=== PATIENT | male | born 1935 | race Caucasian/White ===

== ENCOUNTER 2016-09-18 09:50 | Inpatient (IN) | payer OTHER ==
[2016-09-18 10:00] VITALS: BMI 27.3
--- NOTE | 2016-09-18 10:34 | PDOC ---
History of Present Illness - General Chief Complaint: Shortness of Breath Stated Complaint: SOB Time Seen by Provider: 09/18/16 10:18 History Source: Patient Exam Limitations: No Limitations - History of Present Illness Initial Comments: 81 yo M with afib on eliquis 2.5mg and coreg, CAD, lower GIB 2/2 sigmoid colon prolapse, dystolic CHF with pleural effusion s/p thoracentesis in 2015, HTN, DM2 , Hyperlipdemia, Pulmonary Hypertension, Peptic Ulcer Disease, Other (colon polyps), BPH, chronic low back pain, Gout, presented to the ED with worsening sob x 1 week. Patient is short of breath on 2.5L oxygen at home and he usually uses it at night for just 1-2 hours. But in the past week he has been experiencing increasing exercise intolerance in that he would get short of breath from living room to kitchen while he usually can walk 1-2 blocks. He uses 1 pillow at night and doesn't wake up gasping for air. 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 Denies fever, chills, chest pain, abd pain, urinary or bowel symptom. Past History - Past Medical History Allergies/Adverse Reactions: Allergies Allergy/AdvReac Type Severity Reaction Status Date / Time No Known Allergies Allergy Verified 09/18/16 09:54 Home Medications: Ambulatory Orders Aspirin [ASA -] 81 mg PO DAILY 08/22/14 Simvastatin [Zocor -] 20 mg PO HS 08/22/14 Gabapentin [Neurontin -] 100 mg PO HS 03/26/15 Potassium Chloride [Klor-Con 10] 10 meq PO DAILY 03/26/15 Carvedilol [Coreg -] 3.125 mg PO BID 10/03/15 Tamsulosin HCl [Flomax -] 0.4 mg PO DAILY 10/03/15 Apixaban [Eliquis] 2.5 mg PO BID #0 10/05/15 Colchicine [Colcrys] 0.6 mg PO DAILY PRN #0 10/05/15 Furosemide [Lasix] 40 mg PO DAILY 09/18/16 Cardiac Disorders: Yes (afib) Diabetes: Yes GI Disorders: Yes (gerd, constipation) HTN: Yes Hypercholesterolemia: Yes Suicide Attempt (Hx): No - Surgical History Cardiac Surgery: Yes (2 stents) Orthopedic Surgery: Yes (carpal tunnel surgery B/L) - Psycho/Social/Smoking Cessation Hx Anxiety: No Suicidal Ideation: No Smoking History: Former smoker Have you smoked in the past 12 months: No Number of Cigarettes Smoked Daily: 0 If you are a former smoker, when did you quit?: 1979 Information on smoking cessation initiated: No Hx Alcohol Use: No Drug/Substance Use Hx: No Substance Use Type: None Hx Substance Use Treatment: No *Physical Exam - Vital Signs Last Vital Signs Temp Pulse Resp BP Pulse Ox 97.5 F L 67 18 115/57 99 09/18/16 09:55 09/18/16 11:50 09/18/16 11:50 09/18/16 11:50 09/18/16 11:50 ED Treatment Course - LABORATORY CBC & Chemistry Diagram: 09/18/16 10:59 09/18/16 10:59 - ADDITIONAL ORDERS Additional order review: Laboratory Results 09/18/16 09/18/16 09/18/16 10:59 10:59 10:59 INR 1.95 H D Sodium 137 Potassium 4.6 D Chloride 101 Carbon Dioxide 25 Anion Gap 11 BUN 35 H D Creatinine 1.8 H D Creat Clearance w eGFR 36.21 Random Glucose 108 H Calcium 8.8 Magnesium 2.3 D Total Bilirubin 2.9 H AST 54 H D ALT 29 Alkaline Phosphatase 138 H Creatine Kinase 177 D Creatine Kinase Index 1.2 CK-MB (CK-2) 1.947 CK-MB (CK-2) Rel Index Cancelled Troponin I 0.04 B-Natriuretic Peptide 2086.58 H Total Protein 7.2 Albumin 3.3 L 09/18/16 10:59 RBC 3.38 L MCV 85.0 MCHC 31.7 L RDW 19.6 H MPV 8.0 Neutrophils % 76.8 Lymphocytes % 11.6 D Monocytes % 9.1 Eosinophils % 1.8 Basophils % 0.7 Medical Decision Making - Medical Decision Making 09/18/16 11:02 81 yo M p/w worsening sob x 1 week in the ED. Like acute on chronic CHF exacerbation. Will obtain CXR and labs. 09/18/16 12:10 Patient has elevated BNP ~2000 and positive CXR shows pleural effusion with questionable infiltrates. Case discussed with Dr. Chelsy Sarmiento and will admit the patient under his service to telemetry. *DC/Admit/Observation/Transfer Diagnosis at time of Disposition: CHF (congestive heart failure) Qualifiers: Congestive heart failure type: combined Congestive heart failure chronicity: acute on chronic Qualified Code(s): I50.43 - Acute on chronic combined systolic (congestive) and diastolic (congestive) heart failure - Discharge Dispostion Condition at time of disposition: Stable Admit: Yes Decision to Admit order Date/Time: Decision to Admit Order Category Date Time Status Decision to Admit to Hospital Routine Admission 09/18/16 12:31 Active - Referrals Referrals: Gila Harris MD [Primary Care Provider] -
[2016-09-18 11:10] LABS: BASOPHIL 0.7 % (0-2.0); EOSINOPHIL 1.8 % (0-4.5); MCHC 31.7 g/dl (32.0-35.9); NEUTROPHILS 76.8 % (42.8-82.8); PLATELET COUNT 148 K/MM3 (134-434); RDW 19.6 % (11.9-15.9); WHITE BLOOD COUNT 6.4 K/mm3 (4.0-10.0)
[2016-09-18 11:25] LABS: INR 1.95 (0.82-1.09); PROTHROMBIN TIME (PATIENT) 21.8 SEC (9.98-11.88)
[2016-09-18 11:34] LABS: ALBUMIN 3.3 g/dl (3.4-5.0); BILIRUBIN,TOTAL 2.9 mg/dL (0.2-1.0); CALCIUM 8.8 mg/dL (8.5-10.1); COCKROFT - GAULT 34.91; CREATININE 1.8 mg/dL (0.7-1.3); TOT PROT 7.2 g/dl (6.4-8.2)
[2016-09-18 11:36] LABS: TROPONIN I 0.04 ng/ml (0.00-0.05)
--- NOTE | 2016-09-18 11:40 | PDOC ---
Attending Attestation - Resident Resident Name: Bernardino Huizar - ED Attending Attestation I have performed the following: I have examined & evaluated the patient, The case was reviewed & discussed with the resident, I agree w/resident's findings & plan, Exceptions are as noted - HPI HPI: 81 yo M h/o diastolic HF, CAD, HTN, Afib, CKD presenting to the ER with incr sob , orthopnea, leg swelling. Pt decreased diuretic himself No chest pain, heaviness, tightness no sore throat, cough, fever/chills - Physicial Exam PE: 09/19/16 09:00 Decreased breath sounds at the bases Mild pedal edema No wheezing No abd tenderness - Medical Decision Making CHF Labs sent Will admit Will diurese Heart Score/ECG Review - History History: Moderately suspicious - Electrocardiogram EKG: Normal - Age Age: >/= 65 - Risk Factors Risk Factors Heart Score: Yes Hx Hypercholesterolemia, Yes Hx Hypertension, Yes Hx Diabetes Based on the list above the patient has:: >/=3 risk factors or Hx atherosclerotic disease - Troponin Troponin: </= normal limit - Score Heart Score - Total: 5 #1 ECG reviewed & interpreted by me at: 11:41 09/18/16 11:41 Afib rate of 74 bpm, right axis deviation No st elevations or depressions T waves upright
[2016-09-18 11:54] LABS: MAGNESIUM 2.3 mg/dL (1.8-2.4)
[2016-09-18] MEDS ORDERED: COLCHICINE 0.6 MG TABLET (FP) PO PRN (17:06)
--- NOTE | 2016-09-18 17:38 | CON.CARD ---
Consult Consult Specialty:: cardio Referred by:: alfred (for daren) Reason for Consultation:: chf - History of Present Illness Chief Complaint: sob History of Present Illness: 81 yo male followed by dr wilson for HFpEF, here for sob x several days. saw steve approx 6 wks ago 08/03, with incr sob, orthopnea, leg swelling. wt up 3-5 lbs from baseline office wt 180 to 185 then. torsemide 20 qd incr'd to 40 qd then. f/u 2 wks later: wt down, sx's and edema improved. told to cont torsemide 40 and return 2 wks for o.v. and labs--he did not come. says was on 40qd since and doing well. then dry mouth, like cardboard and so on his own he cut back lasix to 20 qd about 1 week ago. his wt had gone down to 173 at home, came up to 176 after this dose reduction shortly thereafter he began to notice orthopnea and incr [id number]. only mild feet swelling. never cp/tightness/heaviness no sore throat, cough, fever/chills raspy voice change 07/06--saw ENT but exam was normal PMH: diast chf CAD HTN CKD afib - Past Medical History Cardio/Vascular: Yes: AFIB (on AC), CAD, CHF, HTN, Hyperlipdemia, Pulmonary Hypertension, Other (tricuspid regurgitation and aortic sclerosis, coronary stenting > 10 years ago). No: Aneurysm, Aortic Insufficiency, Aortic Stenosis Pulmonary: Yes: Other (left pleural effusion requiring thoracentesis 04/03) Gastrointestinal: Yes: Constipation, Peptic Ulcer Disease, Other (colon polyps) Renal/: Yes: Renal Inusuff (new finding today), BPH Musculoskeletal: Yes: Chronic low back pain Rheumatology: Yes: Gout ENT: Yes: Allergic Rhinitis Endocrine: Yes: Diabetes Mellitus - Past Surgical History Past Surgical History: Yes: Colonoscopy, Tonsillectomy, Upper Endoscopy - Alcohol/Substance Use Hx Alcohol Use: No History of Substance Use: reports: None - Smoking History Smoking history: Former smoker Have you smoked in the past 12 months: No Aproximately how many cigarettes per day: 0 If you are a former smoker, when did you quit?: 1979 - Social History Usual Living Arrangement: With Spouse ADL: Independent 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 History of Recent Travel: No Home Medications - Allergies Allergies/Adverse Reactions: Allergies Allergy/AdvReac Type Severity Reaction Status Date / Time No Known Allergies Allergy Verified 09/18/16 09:54 - Home Medications Home Medications: Ambulatory Orders Aspirin [ASA -] 81 mg PO DAILY 08/22/14 Simvastatin [Zocor -] 20 mg PO HS 08/22/14 Gabapentin [Neurontin -] 100 mg PO HS 03/26/15 Potassium Chloride [Klor-Con 10] 10 meq PO DAILY 03/26/15 Carvedilol [Coreg -] 3.125 mg PO BID 10/03/15 Tamsulosin HCl [Flomax -] 0.4 mg PO DAILY 10/03/15 Apixaban [Eliquis] 2.5 mg PO BID #0 10/05/15 Colchicine [Colcrys] 0.6 mg PO DAILY PRN #0 10/05/15 Furosemide [Lasix] 40 mg PO DAILY 09/18/16 Family Disease History - Family Disease History Family Disease History: Heart Disease: Father ( 87), Mother ( 89), Brother ( 41), Sister ( 93) Review of Systems - Review of Systems Constitutional: denies: Chills, Fever Eyes: denies: Eye Pain HENT: denies: Nasal Congestion Neck: denies: Stiffness Cardiovascular: denies: Palpitations Respiratory: reports: Orthopnea. denies: PND Gastrointestinal: denies: Diarrhea, Rectal Bleeding Genitourinary: denies: Burning, Hematuria Musculoskeletal: denies: Muscle Pain Integumentary: denies: Rash Neurological: denies: Numbness, Seizure, Syncope Endocrine: denies: Excessive Sweating Hematology/Lymphatic: denies: Excessive Bleeding Vital Signs: Vital Signs Temperature 97.5 F L 09/18/16 09:55 Pulse Rate 62 09/18/16 14:10 Respiratory Rate 16 09/18/16 14:10 Blood Pressure 118/60 09/18/16 14:10 O2 Sat by Pulse Oximetry (%) 99 09/18/16 14:10 Constitutional: Yes: Well Nourished, No Distress Eyes: No: Sclera Icterus HENT: No: Nasal Congestion Neck: No: Decreased ROM Respiratory: Yes: CTA Bilaterally. No: Accessory Muscle Use, Rales, Wheezes Gastrointestinal: Yes: Normal Bowel Sounds. No: Distention, Hepatomegaly, Palpable Mass, Tenderness Cardiovascular: Yes: Pulse Irregular JVD: Yes Carotid Bruit: No PMI: Non-Displaced Heart Sounds: Yes: S1, S2. No: Gallop Murmur: No: Systolic Murmur, Diastolic Murmur Musculoskeletal: Yes: Other (No kyphosis) Extremities: No: Cold, Cool, Cyanosis Edema: No Peripheral Pulses: 2+ Left Carotid, 2+ Right Carotid, 2+ Left Doralis Pedis, 2+ Right Dorsalis Pedis Integumentary: No: Jaundice Neurological: Yes: Alert, Oriented (x3) Psychiatric: No: Agitated - Other Data Labs, Other Data: INR, PTT INR 1.95 (0.82-1.09) H D 09/18/16 10:59 Laboratory Tests 03/26/15 09/18/16 09/18/16 10:20 10:59 10:59 WBC 6.4 Hgb 9.1 L D Plt Count 148 Sodium 137 Potassium 4.6 D Carbon Dioxide 25 BUN 35 H D Creatinine 1.8 H D AST 54 H D ALT 29 Creatine Kinase 177 D Troponin I 0.04 B-Natriuretic Peptide 4220.90 H 2086.58 H Albumin 3.3 L ekg 09/18: afib, HR controlled; R axis, normal intervals; no path q's; no ST-T abn tele: afib, good HRs Imaging - Results Chest X-ray: Report Reviewed, Image Reviewed Assessment/Plan Echo 07/2015: afib, nl lvef, mild conc lvh, nl rv, mod orin, mild mr, mod tr, sev phtn. Echo 03/2015: Nl LV/RV, mild orin, mild MR, mod-sev TR, mild-mod AR, mod phtn Mibi 08/2014: no ischemia, nl EF. acute dCHF: -03/2015 admit for chf, required thoracentesis for L pleural effusion--was exudative, ? details--has pulm f/u since then as well -08/03 pt presented to office with sxs of chf (orthopnea, rodrigez, inc le edema) and wt up to 185, from baseline of approx 180lbs--torsemide was increased from 20 qd to 40 qd--wt came down, chf sxs resolved -maintained on torsemide 40 qd then, did not f/u 09/03 as advised and admits he went back to 20mg qd dosing on his own -BNP 2K (from 4K with chf 2015 here) -CXR reviewed: diffuse interstitial pattern incr'd vs 10/02 elo at bases (though different technique, present film underpenetrated); + L effusion likely incr'd vs prior (no vasc redistribution/engorgement appreciated) -currently likely at least 5 lb volume-up with JVD to jaw -lasix 80 iv x 1 now--reassess weight, JVD and renal fxn in am -further lasix dose recs based on cardio assessment in am pulm HTN: -? WHO 2 (LV diast chf), ? hypoxia component (details of pulm hx not known to me ), ? other -no known VTE/PE history--on AC for afib -ekg here with more rightward qrs axis vs prior, ? RV dysfunction now -repeat echo here afib -rate controlled as outpatient on bb -CHADS-VASC 4. -LGIB 09/2015 2/ to reversible cause-rectal prolapse-which was corrected and cleared by GI to resume AC--on Eliquis 2.5 bid with no further bleeding since then -cont AC mgmt as doing CKD -baseline creat 1.5-1.6 (08/16 last in our office) -up here, likely sec to acute chf/cardiorenal -trend labs with diuresis CAD s/p remote PCI (YESSI to rca 2005 at [facility]): -no suspected angina/ACS, no isch ecg changes -serial troponin to be checked -cont ASA, coreg (3.125 bid), statin HTN -controlled -cont home meds
--- NOTE | 2016-09-18 17:56 | HP ---
Admitting History and Physical - Primary Care Physician PCP: Milli Sarmiento S - Admission Chief Complaint: sob History of Present Illness: 81 yo M with afib on eliquis 2.5mg and coreg, CAD, lower GIB 2/2 sigmoid colon prolapse, dystolic CHF with pleural effusion s/p thoracentesis in 2015, HTN, DM2 , Hyperlipdemia, Pulmonary Hypertension, Peptic Ulcer Disease, Other (colon polyps), BPH, chronic low back pain, Gout, presented to the ED with worsening sob x 1 week. Patient is short of breath on 2.5L oxygen at home and he usually uses it at night for just 1-2 hours. But in the past week he has been experiencing increasing exercise intolerance in that he would get short of breath from living room to kitchen while he usually can walk 1-2 blocks. He uses 1 pillow at night and doesn't wake up gasping for air. He also stated that he takes only 20mg furosemide daily while his grading clerk told me to take 40mg daily. Denies fever, chills, chest pain, abd pain, urinary or bowel symptom. pt's PCP dr Zohreh harris, pt's daughter present at his bedside History Source: Patient, Family Member, Medical Record Limitations to Obtaining History: No Limitations - Past Medical History Cardiovascular: Yes: AFIB (on AC), CAD, CHF, HTN, Hyperlipdemia, Pulmonary Hypertension, Other (tricuspid regurgitation and aortic sclerosis, coronary stenting > 10 years ago). No: Aneurysm, Aortic Insufficiency, Aortic Stenosis Pulmonary: Yes: Other (left pleural effusion requiring thoracentesis 04/03) Gastrointestinal: Yes: Constipation, Peptic Ulcer Disease, Other (colon polyps) Renal/: Yes: Renal Inusuff (new finding today), BPH Musculoskeletal: Yes: Chronic low back pain Rheumatology: Yes: Gout ENT: Yes: Allergic Rhinitis Endocrine: Yes: Diabetes Mellitus - Past Surgical History Past Surgical History: Yes: Colonoscopy, Tonsillectomy, Upper Endoscopy - Smoking History Smoking history: Former smoker Have you smoked in the past 12 months: No Aproximately how many cigarettes per day: 0 If you are a former smoker, when did you quit?: 1979 - Alcohol/Substance Use Hx Alcohol Use: No History of Substance Use: reports: None - Social History Usual Living Arrangement: Yes: Alone ADL: Independent 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 History of Recent Travel: No Home Medications - Allergies Allergies/Adverse Reactions: Allergies Allergy/AdvReac Type Severity Reaction Status Date / Time No Known Allergies Allergy Verified 09/18/16 09:54 - Home Medications Home Medications: Ambulatory Orders Aspirin [ASA -] 81 mg PO DAILY 08/22/14 Simvastatin [Zocor -] 20 mg PO HS 08/22/14 Gabapentin [Neurontin -] 100 mg PO HS 03/26/15 Potassium Chloride [Klor-Con 10] 10 meq PO DAILY 03/26/15 Carvedilol [Coreg -] 3.125 mg PO BID 10/03/15 Tamsulosin HCl [Flomax -] 0.4 mg PO DAILY 10/03/15 Apixaban [Eliquis] 2.5 mg PO BID #0 10/05/15 Colchicine [Colcrys] 0.6 mg PO DAILY PRN #0 10/05/15 Furosemide [Lasix] 40 mg PO DAILY 09/18/16 Family Disease History - Family Disease History Family Disease History: Heart Disease: Father ( 87), Mother ( 89), Brother ( 41), Sister ( 93) Review of Systems - Review of Systems Constitutional: denies: Chills, Fever, Lethargy Eyes: denies: Blind Spots, Double Vision HENT: denies: Difficult Swallowing Neck: denies: Stiffness, Tenderness Cardiovascular: reports: Edema, Shortness of Breath. denies: Chest Pain, Palpitations Respiratory: reports: Orthopnea, PND, SOB, SOB on Exertion. denies: Cough Gastrointestinal: reports: Constipation (occasional). denies: Abdominal Pain, Bloating, Diarrhea, Vomiting Genitourinary: denies: Burning, Dysuria, Flank Pain Musculoskeletal: denies: Back Pain, Joint Pain, Joint Swelling, Muscle Weakness Integumentary: denies: Bruising, Pruritis, Rash Neurological: denies: Change in LOC, Change in Speech, Confusion, Unsteady Gait Hematology/Lymphatic: denies: Easily Bruised, Excessive Bleeding Psychiatric: denies: Altered Sleep Pattern, Anxiety, Depression, Suicidal Physical Examination Vital Signs: Vital Signs Temperature 98.2 F 09/18/16 15:30 Pulse Rate 62 09/18/16 15:30 Respiratory Rate 16 09/18/16 15:30 Blood Pressure 124/68 09/18/16 15:30 O2 Sat by Pulse Oximetry (%) 96 09/18/16 15:30 Constitutional: Yes: No Distress, Calm Eyes: Yes: Conjunctiva Clear HENT: Yes: Atraumatic Neck: Yes: Supple Cardiovascular: Yes: Regular Rate and Rhythm Respiratory: Yes: Diminished Gastrointestinal: Yes: Soft. No: Distention, Tenderness Renal/: No: CVA Tenderness - Left, CVA Tenderness - Right, Hematuria Musculoskeletal: No: Joint Stiffness, Joint Swelling Extremities: No: Cold, Cool, Cyanosis Edema: Yes (1+ pretibial bilateral) Peripheral Pulses WNL: Yes Integumentary: No: Rash, Venous Stasis Changes Neurological: Yes: WNL, Alert, Oriented ...Motor Strength: WNL Psychiatric: Yes: WNL, Alert, Oriented. No: Agitated, Suicidal Ideation Imaging - Results Chest X-ray: Report Reviewed Other: Report Reviewed Assessment/Plan 81 yo M with afib on eliquis CAD, lower GIB 2/2 sigmoid colon prolapse, dystolic CHF with pleural effusion s/p thoracentesis in 2014, HTN, DM2, Hyperlipdemia, Pulmonary Hypertension, Peptic Ulcer Disease, Other (colon polyps ), BPH, chronic low back pain, Gout, presented to the ED with worsening sob x 1 week. Patient is short of breath on 2.5L oxygen at home and he usually uses it at night for just 1-2 hours. Progressive increasing exercise intolerance and shortness of breath and PND/ orthopneea 2-3 pillows self cut lasix in half some dietary indiscretion after d/w pt and daughter admit to telemetry cardio eval dr Newell; IV lasix, HANH pulm eval; pt saw dr Anderson before also pt said he is up to date with GI colonoscopy; had borderline high T Bili in the past,now around 2; CRF creat more elevated; acute on CRF; will order renal eval; renal pelvic US if requested by renal will get liver US; chest CT echo if cardio requests it f/u labs falls DVT decubs aspiration pfx d/w pt and staff d/w pt's daughter all the above d/w pt's PCP dr Zohreh Harris t time 75 min
[2016-09-18] MEDS ORDERED: FUROSEMIDE 40 MG/4 ML INJECTABLE VIAL IVPUSH ONE (18:12)
[2016-09-18] MEDS: CARVEDILOL 3.125 MG TABLET (FP) PO SCH (21:20)
[2016-09-18] MEDS: APIXABAN 2.5 MG TABLET PO SCH (21:20)
[2016-09-18] MEDS: ATORVASTATIN CA 10 MG TABLET (FP) PO SCH (21:20)
[2016-09-18] MEDS: GABAPENTIN 100 MG CAPSULE (FP) PO SCH (21:24)
[2016-09-18] MEDS ORDERED: PATIENT'S OWN MEDICATION (NON-FORMULARY) (Simvastatin 20 MG) PO SCH (22:00)
--- NOTE | 2016-09-18 22:54 | EKG ---
Test Reason : Blood Pressure : / mmHG Vent. Rate : 074 BPM Atrial Rate : 340 BPM P-R Int : 000 ms QRS Dur : 084 ms QT Int : 422 ms P-R-T Axes : 000 108 052 degrees QTc Int : 468 ms ATRIAL FIBRILLATION ABNORMAL ECG WHEN COMPARED WITH ECG OF 03-OCT-2015 13:53, T WAVE VARIATION Confirmed by NAHUN VARMA MD ([id number]) on 09/18/2016 10:54:36 PM Referred By: Confirmed By:NAHUN VARMA MD
[2016-09-18 23:42] LABS: URINE APPEARANCE CLEAR; URINE BILIRUBIN NEGATIVE (NEGATIVE); URINE BLOOD NEGATIVE (NEGATIVE); URINE COLOR LTYELLOW; URINE GLUCOSE (UA) NEGATIVE (NEGATIVE); URINE KETONE NEGATIVE (NEGATIVE); URINE LEUK ESTERASE NEGATIVE (NEGATIVE); URINE NITRITE NEGATIVE (NEGATIVE); URINE PROTEIN NEGATIVE (NEGATIVE); URINE UROBILINOGEN NEGATIVE E.U./dl (0.2-1.0)
[2016-09-19 08:27] LABS: ALBUMIN 3.2 g/dl (3.4-5.0)
[2016-09-19 08:33] LABS: BASOPHIL 0.9 % (0-2.0); EOSINOPHIL 2.3 % (0-4.5); MCH 27.1 pg (25.7-33.7); MCHC 32.1 g/dl (32.0-35.9); MEAN CELL VOLUME 84.5 fl (80-96); MEAN PLT VOLUME 8.2 fl (7.5-11.1); NEUTROPHILS 70.1 % (42.8-82.8); PLATELET COUNT 136 K/MM3 (134-434); RDW 19.1 % (11.9-15.9); WHITE BLOOD COUNT 6.8 K/mm3 (4.0-10.0)
[2016-09-19 08:35] LABS: BILIRUBIN,DIRECT 0.5 mg/dL (0.0-0.2); BILIRUBIN,TOTAL 2.8 mg/dL (0.2-1.0); FERRITIN 48.719 ng/ml (16.4-293.9); TOT PROT 6.7 g/dl (6.4-8.2); TROPONIN I 0.05 ng/ml (0.00-0.05)
[2016-09-19 08:49] LABS: CALCIUM 8.5 mg/dL (8.5-10.1); COCKROFT - GAULT 39.32; CREATININE 1.6 mg/dL (0.7-1.3); THYROID STIMULATING HORMONE 2.55 uIU/ml (0.358-3.74)
--- NOTE | 2016-09-19 08:56 | PN ---
Progress Note, Physician Chief Complaint: dafd - Current Medication List Current Medications: Active Medications Apixaban (Eliquis -) 2.5 mg PO BID [facility] Last Admin: 09/18/16 21:20 Dose: 2.5 mg Aspirin (Asa -) 81 mg PO DAILY [facility] Atorvastatin Calcium (Lipitor -) 10 mg PO HS [facility] Last Admin: 09/18/16 21:20 Dose: 10 mg Carvedilol (Coreg -) 3.125 mg PO BID [facility] Last Admin: 09/18/16 21:20 Dose: 3.125 mg Colchicine (Colcrys -) 0.6 mg PO DAILY PRN PRN Reason: PAIN LEVEL 6-10 Gabapentin (Neurontin -) 100 mg PO HS [facility] Last Admin: 09/18/16 21:24 Dose: 100 mg Potassium Chloride (K-Dur -) 10 meq PO DAILY [facility] Tamsulosin HCl (Flomax -) 0.4 mg PO DAILY@0830 [facility] - Objective Vital Signs: Vital Signs Temperature 98.2 F 09/19/16 06:00 Pulse Rate 65 09/19/16 06:00 Respiratory Rate 19 09/19/16 06:00 Blood Pressure 134/67 09/19/16 06:00 O2 Sat by Pulse Oximetry (%) 98 09/18/16 21:00 Labs: CBC, BMP 09/19/16 05:50 09/19/16 05:50 INR, PTT INR 1.95 (0.82-1.09) H D 09/18/16 10:59
[2016-09-19] MEDS: ASPIRIN 81 MG CHEWABLE TABLETS PO SCH (09:43)
[2016-09-19] MEDS: APIXABAN 2.5 MG TABLET PO SCH ×2 (09:43→22:13)
[2016-09-19] MEDS: TAMSULOSIN HCL 0.4 MG CAP.ER.24H (FP) PO SCH (09:43)
[2016-09-19] MEDS: CARVEDILOL 3.125 MG TABLET (FP) PO SCH ×2 (09:43→22:13)
[2016-09-19] MEDS ORDERED: POTASSIUM CHLORIDE TABS 10 MEQ TABLET.ER (FP) PO SCH (10:00)
--- NOTE | 2016-09-19 11:43 | PN ---
Progress Note, Physician Chief Complaint: in bed NAD feels better asking when he can go home less legs edema - Current Medication List Current Medications: Active Medications Apixaban (Eliquis -) 2.5 mg PO BID [facility] Last Admin: 09/19/16 09:43 Dose: 2.5 mg Aspirin (Asa -) 81 mg PO DAILY [facility] Last Admin: 09/19/16 09:43 Dose: 81 mg Atorvastatin Calcium (Lipitor -) 10 mg PO [facility] Last Admin: 09/18/16 21:20 Dose: 10 mg Carvedilol (Coreg -) 3.125 mg PO BID [facility] Last Admin: 09/19/16 09:43 Dose: 3.125 mg Colchicine (Colcrys -) 0.6 mg PO DAILY PRN PRN Reason: PAIN LEVEL 6-10 Gabapentin (Neurontin -) 100 mg PO [facility] Last Admin: 09/18/16 21:24 Dose: 100 mg Potassium Chloride (K-Dur -) 10 meq PO DAILY [facility] Last Admin: 09/19/16 09:43 Dose: 10 meq Tamsulosin HCl (Flomax -) 0.4 mg PO DAILY@0830 [facility] Last Admin: 09/19/16 09:43 Dose: 0.4 mg - Objective Vital Signs: Vital Signs Temperature 98.2 F 09/19/16 08:05 Pulse Rate 64 09/19/16 08:05 Respiratory Rate 16 09/19/16 08:05 Blood Pressure 112/56 09/19/16 08:05 O2 Sat by Pulse Oximetry (%) 98 09/18/16 21:00 Constitutional: Yes: No Distress, Calm Eyes: Yes: Conjunctiva Clear HENT: Yes: Atraumatic Neck: Yes: Supple Cardiovascular: Yes: Regular Rate and Rhythm Respiratory: Yes: Diminished Gastrointestinal: Yes: Soft. No: Distention, Tenderness Genitourinary: No: CVA Tenderness - Left, CVA Tenderness - Right, Hematuria Musculoskeletal: No: Joint Stiffness, Joint Swelling Extremities: No: Cold, Cool Edema: Yes (less bilat) Peripheral Pulses WNL: Yes Integumentary: No: Rash, Venous Stasis Changes Neurological: Yes: WNL, Alert, Oriented ...Motor Strength: WNL Psychiatric: Yes: WNL, Alert, Oriented. No: Agitated, Suicidal Ideation Labs: CBC, BMP 09/19/16 05:50 09/19/16 05:50 INR, PTT INR 1.95 (0.82-1.09) H D 09/18/16 10:59 - ....Imaging Cat Scan: Report Reviewed Other: Report Reviewed Assessment/Plan 81 yo M with afib on eliquis CAD, lower GIB 2/2 sigmoid colon prolapse, dystolic CHF with pleural effusion s/p thoracentesis in 2015, HTN, DM2, Hyperlipdemia, Pulmonary Hypertension, Peptic Ulcer Disease, Other (colon polyps ), BPH, chronic low back pain, Gout, presented to the ED with worsening sob x 1 week. Patient is short of breath on 2.5L oxygen at home and he usually uses it at night for just 1-2 hours. Progressive increasing exercise intolerance and shortness of breath and PND/ orthopneea 2-3 pillows self cut lasix in half some dietary indiscretion after holidays admitted to telemetry cardio eval dr Newell; IV lasix, HANH negative pulm eval; chest CT reviewed and d/w dr Sanchez; mass like LLL atelectasis; rec T f/u in 3-6 months d/w pt and pt's PCP liver US pending CRF creat more elevated; acute on CRF; will order renal eval; renal pelvic US if requested by renal echo if cardio requests it replete lytes for low K; f/u labs pt has home O2 already falls DVT decubs aspiration pfx d/w pt and staff d/w pt's PCP dr Zohreh Harris t time 40 min
[2016-09-19] MEDS ORDERED: POTASSIUM CHLORIDE TABS 20 MEQ TABLET.ER (FP) PO ONE (11:48)
--- NOTE | 2016-09-19 11:58 | PN ---
Progress Note (short form) - Note Progress Note: s: feels back to normal after iv lasix last night. le edema resolved and no further sob when walking here; no cp, sob, palps, dizzy o: Vital Signs Period Temp Pulse Resp BP Sys/Rivera Pulse Ox Last 24 Hr 97.5 F-98.4 F 62-95 16-20 100-134/55-87 96-99 Constitutional: Yes: Well Nourished, No Distress Eyes: No: Sclera Icterus Respiratory: Yes: CTA Bilaterally. No: Accessory Muscle Use, Rales, Wheezes Gastrointestinal: Yes: Normal Bowel Sounds. No: Distention, Hepatomegaly, Palpable Mass, Tenderness Cardiovascular: Yes: Pulse Irregular JVD: no Heart Sounds: Yes: S1, S2. No: Gallop Murmur: No: Systolic Murmur, Diastolic Murmur Extremities: No: Cold, Cool, Cyanosis Edema: No Integumentary: No: Jaundice Neurological: Yes: Alert, Oriented (x3) Psychiatric: No: Agitated Current Medications Generic Name Dose Route Start Last Admin Trade Name Freq PRN Reason Stop Dose Admin Apixaban 2.5 mg 09/18/16 22:00 09/19/16 09:43 Eliquis - PO 2.5 mg BID [facility] Administration Aspirin 81 mg 09/19/16 10:00 09/19/16 09:43 Asa - PO 81 mg DAILY [facility] Administration Atorvastatin Calcium 10 mg 09/18/16 22:00 09/18/16 21:20 Lipitor - PO 10 mg HS [facility]OR Administration Carvedilol 3.125 mg 09/18/16 22:00 09/19/16 09:43 Coreg - PO 3.125 mg BID [facility] Administration Colchicine 0.6 mg 09/18/16 17:06 Colcrys - PO DAILY PRN PAIN LEVEL 6-10 Gabapentin 100 mg 09/18/16 22:00 09/18/16 21:24 Neurontin - PO 100 mg HS [facility]OR Administration Potassium Chloride 20 meq 09/19/16 11:48 K-Dur - PO DAILY [facility]OR Tamsulosin HCl 0.4 mg 09/19/16 08:30 09/19/16 09:43 Flomax - PO 0.4 mg DAILY@0830 [facility] Administration Torsemide 40 mg 09/19/16 12:00 Demadex - PO DAILY [facility] Laboratory Last Values WBC 6.8 K/mm3 (4.0-10.0) 09/19/16 05:50 RBC 3.32 M/mm3 (4.00-5.60) L 09/19/16 05:50 Hgb 9.0 GM/dL (11.7-16.9) L 09/19/16 05:50 Hct 28.0 % (35.4-49) L 09/19/16 05:50 MCV 84.5 fl (80-96) 09/19/16 05:50 MCHC 32.1 g/dl (32.0-35.9) 09/19/16 05:50 RDW 19.1 % (11.9-15.9) H 09/19/16 05:50 Plt Count 136 K/MM3 (134-434) 09/19/16 05:50 MPV 8.2 fl (7.5-11.1) 09/19/16 05:50 Neutrophils % 70.1 % (42.8-82.8) 09/19/16 05:50 Lymphocytes % 15.4 % (8-40) D 09/19/16 05:50 Monocytes % 11.3 % (3.8-10.2) H 09/19/16 05:50 Eosinophils % 2.3 % (0-4.5) 09/19/16 05:50 Basophils % 0.9 % (0-2.0) 09/19/16 05:50 INR 1.95 (0.82-1.09) H D 09/18/16 10:59 Sodium 141 mmol/L (136-145) 09/19/16 05:50 Potassium 3.4 mmol/L (3.5-5.1) L D 09/19/16 05:50 Chloride 102 mmol/L (98-107) 09/19/16 05:50 Carbon Dioxide 29 mmol/L (21-32) 09/19/16 05:50 Anion Gap 10 (8-16) 09/19/16 05:50 BUN 33 mg/dL (7-18) H 09/19/16 05:50 Creatinine 1.6 mg/dL (0.7-1.3) H 09/19/16 05:50 Creat Clearance w eGFR 36.21 (>60) 09/18/16 10:59 Random Glucose 89 mg/dL (74-106) 09/19/16 05:50 Calcium 8.5 mg/dL (8.5-10.1) 09/19/16 05:50 Magnesium 2.3 mg/dL (1.8-2.4) D 09/18/16 10:59 Ferritin 48.719 ng/ml (16.4-293.9) 09/19/16 05:50 Total Bilirubin 2.8 mg/dL (0.2-1.0) H 09/19/16 05:50 Direct Bilirubin 0.5 mg/dL (0.0-0.2) H 09/19/16 05:50 AST 18 U/L (15-37) D 09/19/16 05:50 ALT 21 U/L (12-78) D 09/19/16 05:50 Alkaline Phosphatase 132 U/L (45-117) H 09/19/16 05:50 Creatine Kinase 74 IU/L (39-308) 09/19/16 05:50 Creatine Kinase Index 1.2 % (0.0-5.0) 09/18/16 10:59 CK-MB (CK-2) 1.947 ng/ml (0.5-3.6) 09/18/16 10:59 CK-MB (CK-2) Rel Index Cancelled 09/18/16 10:59 Troponin I 0.05 ng/ml (0.00-0.05) 09/19/16 05:50 B-Natriuretic Peptide 2086.58 pg/ml (5-450) H 09/18/16 10:59 Total Protein 6.7 g/dl (6.4-8.2) 09/19/16 05:50 Albumin 3.2 g/dl (3.4-5.0) L 09/19/16 05:50 Vitamin B12 1160 pg/ml (180-914) H 09/19/16 05:50 TSH 2.55 uIU/ml (0.358-3.74) 09/19/16 05:50 Urine Color Ltyellow 09/18/16 23:10 Urine Appearance Clear 09/18/16 23:10 Urine pH 6.0 (5.0-8.0) 09/18/16 23:10 Ur Specific [place] 1.008 (1.001-1.035) 09/18/16 23:10 Urine Protein Negative (NEGATIVE) 09/18/16 23:10 Urine Glucose (UA) Negative (NEGATIVE) 09/18/16 23:10 Urine Ketones Negative (NEGATIVE) 09/18/16 23:10 Urine Blood Negative (NEGATIVE) 09/18/16 23:10 Urine Nitrite Negative (NEGATIVE) 09/18/16 23:10 Urine Bilirubin Negative (NEGATIVE) 09/18/16 23:10 Urine Urobilinogen Negative E.U./dl (0.2-1.0) 09/18/16 23:10 Ur Leukocyte Esterase Negative (NEGATIVE) 09/18/16 23:10 ekg 09/18: afib, HR controlled; R axis, normal intervals; no path q's; no ST-T abn tele: afib, good HRs ct chest: no pulm congestion, minimal b/l effs Echo 07/2015: afib, nl lvef, mild conc lvh, nl rv, mod orin, mild mr, mod tr, sev phtn. Echo 03/2015: Nl LV/RV, mild orin, mild MR, mod-sev TR, mild-mod AR, mod phtn Mibi 08/2014: no ischemia, nl EF. a/p: acute diastolic CHF: -03/2015 admit for chf, required thoracentesis for L pleural effusion--was exudative, ? details--has pulm f/u since then as well -08/03 pt presented to office with sxs of chf (orthopnea, gonzalez, inc le edema) and wt up to 185, from baseline of approx 180lbs--torsemide was increased from 20 qd to 40 qd--wt came down, chf sxs resolved -maintained on torsemide 40 qd then, did not f/u 09/03 as advised and admits he went back to 20mg qd dosing on his own -BNP 2K (from 4K with chf 2015 here) -CXR reviewed: diffuse interstitial pattern incr'd vs 10/02 elo at bases (though different technique, present film underpenetrated); + L effusion likely incr'd vs prior (no vasc redistribution/engorgement appreciated) -currently likely at least 5 lb volume-up with JVD to jaw -lasix 80 iv x 1 now--reassess weight, JVD and renal fxn in am -further lasix dose recs based on cardio assessment in am -09/19: after getting iv lasix last night pt feeling much better, back to baseline with no le edema and no gonzalez walking here. Wt also at baseline. Likely vol overload was due to pt self-reducing his torsemide dose from 40 qd to 20qd at home. Will give torsemide 40 po daily starting with today dose and if maintains vol status then ok for dc tomorrow on this dose. pulm HTN: -? WHO 2 (LV diast chf), ? hypoxia component ? other -no known VTE/PE history--on AC for afib -repeat echo afib -rate controlled on bb -CHADS-VASC 4. -LGIB 09/2015 2/2 to reversible cause-rectal prolapse-which was corrected and cleared by GI to resume AC--on Eliquis 2.5 bid with no further bleeding since then -cont AC mgmt as doing CKD -baseline creat 1.5-1.6 (08/16 last in our office) -up here, likely sec to acute chf/cardiorenal-->improved to baseline after iv lasix -trend labs with diuresis CAD s/p remote PCI (YESSI to rca 2005 at [facility]): -no suspected angina/ACS, no isch ecg changes -ce's neg x2 -cont ASA, coreg (3.125 bid), statin HTN -controlled -cont home meds
[2016-09-19] MEDS ORDERED: FUROSEMIDE 40 MG/4 ML INJECTABLE VIAL IVPUSH SCH (12:00)
[2016-09-19] MEDS: TORSEMIDE 20 MG TABLET (FP) PO SCH (12:15)
--- NOTE | 2016-09-19 12:34 | CON.PULM ---
Consult Consult Specialty:: PULMONARY Referred by:: [facility] Reason for Consultation:: SOB/ABN CXR - History of Present Illness Chief Complaint: SOB/LOWER EXT EDEMA History of Present Illness: 81 yo M h/o diastolic HF, CAD, HTN, Afib, CKD presenting to the ER with incr sob, orthopnea, leg swelling. Pt decreased diuretic himself due to xerostomia. He was also using spiriva which was the likely culprit No chest pain, heaviness, tightness no sore throat, cough, fever/chills. Presently feels much improved after being placed back on his diuretic. 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 No: Aneurysm, Aortic Insufficiency, Aortic Stenosis Pulmonary: Yes: Other (left pleural effusion requiring thoracentesis 04/03) Gastrointestinal: Yes: Constipation, Peptic Ulcer Disease, Other (colon polyps) Renal/: Yes: Renal Inusuff (new finding today), BPH Musculoskeletal: Yes: Chronic low back pain Rheumatology: Yes: Gout ENT: Yes: Allergic Rhinitis Endocrine: Yes: Diabetes Mellitus - Past Surgical History Past Surgical History: Yes: Colonoscopy, Tonsillectomy, Upper Endoscopy - Alcohol/Substance Use Hx Alcohol Use: No History of Substance Use: reports: None - Smoking History Smoking history: Former smoker Have you smoked in the past 12 months: No Aproximately how many cigarettes per day: 0 If you are a former smoker, when did you quit?: 1979 - Social History Usual Living Arrangement: With Spouse ADL: Independent 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 History of Recent Travel: No Home Medications - Allergies Allergies/Adverse Reactions: Allergies Allergy/AdvReac Type Severity Reaction Status Date / Time No Known Allergies Allergy Verified 09/18/16 09:54 - Home Medications Home Medications: Ambulatory Orders Aspirin [ASA -] 81 mg PO DAILY 08/22/14 Simvastatin [Zocor -] 20 mg PO HS 08/22/14 Gabapentin [Neurontin -] 100 mg PO HS 03/26/15 Potassium Chloride [Klor-Con 10] 10 meq PO DAILY 03/26/15 Carvedilol [Coreg -] 3.125 mg PO BID 10/03/15 Tamsulosin HCl [Flomax -] 0.4 mg PO DAILY 10/03/15 Apixaban [Eliquis] 2.5 mg PO BID #0 10/05/15 Colchicine [Colcrys] 0.6 mg PO DAILY PRN #0 10/05/15 Furosemide [Lasix] 40 mg PO DAILY 09/18/16 Family Disease History - Family Disease History Family Disease History: Heart Disease: Father ( 87), Mother ( 89), Brother ( 41), Sister ( 93) Review of Systems - Review of Systems Constitutional: denies: Fever Eyes: denies: Blurred Vision HENT: denies: Difficult Swallowing Neck: denies: Decreased ROM Cardiovascular: denies: Chest Pain Respiratory: reports: SOB on Exertion. denies: Cough, Hemoptysis, Wheezing Gastrointestinal: denies: Abdominal Pain Physical Exam Vital Sings: Vital Signs Temperature 98.2 F 09/19/16 08:05 Pulse Rate 64 09/19/16 08:05 Respiratory Rate 16 09/19/16 08:05 Blood Pressure 112/56 09/19/16 08:05 O2 Sat by Pulse Oximetry (%) 98 09/18/16 21:00 Constitutional: Yes: Calm Eyes: Yes: EOM Intact HENT: Yes: Normocephalic Neck: Yes: Trachea Midline Cardiovascular: Yes: S1, S2 Respiratory: Yes: CTA Bilaterally Gastrointestinal: Yes: Normal Bowel Sounds Edema: No Neurological: Yes: Alert Labs: CBC, BMP 09/19/16 05:50 09/19/16 05:50 REST REVIEWED Imaging - Results Chest X-ray: Image Reviewed Cat Scan: Image Reviewed Problem List - Problems (1) CHF (congestive heart failure) Code(s): I50.9 - HEART FAILURE, UNSPECIFIED Qualifiers: Congestive heart failure type: combined Congestive heart failure chronicity: acute on chronic Qualified Code(s): I50.43 - Acute on chronic combined systolic (congestive) and diastolic (congestive) heart failure (2) Abnormal chest xray Code(s): R93.8 - ABNORMAL FINDINGS ON DIAGNOSTIC IMAGING OF BODY STRUCTURES (3) Atelectasis of left lung Code(s): J98.11 - ATELECTASIS (4) Dyspnea Code(s): R06.00 - DYSPNEA, UNSPECIFIED Qualifiers: Dyspnea type: dyspnea on exertion Qualified Code(s): R06.09 - Other forms of dyspnea (5) History of colon polyps Code(s): Z86.010 - PERSONAL HISTORY OF COLONIC POLYPS Assessment/Plan A/E CHF DUE TO NONCOMPLIANCE WITH DIURETIC NOW MUCH IMPROVED REVIEW OF PRESENT AND PAST CAT SCANS REVEAL A CHRONIC LEFT LOWER LOBE LIKELY ROUNDED ATELECTASIS WITH SURROUNDING PLEURAL EFFUSION WOULD CONSIDER DISCHARGE PLANNING AND REPEAT CT CHEST AN OUTPATIENT IN 6-8 MONTHS THANK YOU Brady LUTHER MD
--- NOTE | 2016-09-19 15:36 | CONSULT ---
Consult - text type - Consultation Consultation Note: Renal Consult for MINGO in setting of CHF This is a 81 year old Gentleman with PMhx of CHF with normal baseline renal function presented with sob and LE swelling and found to have MINGO with BUN/Cr of 35/1.8. Pt denies any history of CKD or kidney stones. Denies any changes in his urination prior to presentation Reports that his sob is imrpoved s/p IV lasix. No fever, cough, chlls, N/V/D Home Medications Medication Instructions Recorded Aspirin [ASA -] 81 mg PO DAILY 08/22/14 Simvastatin [Zocor -] 20 mg PO HS 08/22/14 Gabapentin [Neurontin -] 100 mg PO HS 03/26/15 Potassium Chloride [Klor-Con 10] 10 meq PO DAILY 03/26/15 Carvedilol [Coreg -] 3.125 mg PO BID 10/03/15 Tamsulosin HCl [Flomax -] 0.4 mg PO DAILY 10/03/15 Apixaban [Eliquis] 2.5 mg PO BID #0 10/05/15 Colchicine [Colcrys] 0.6 mg PO DAILY PRN #0 10/05/15 Furosemide [Lasix] 40 mg PO DAILY 09/18/16 Vital Signs Temperature 97.8 F 09/19/16 14:50 Pulse Rate 69 09/19/16 14:50 Respiratory Rate 18 09/19/16 14:50 Blood Pressure 120/45 09/19/16 14:50 O2 Sat by Pulse Oximetry (%) 96 09/19/16 09:00 Intake & Output 09/16/16 09/17/16 09/18/16 09/19/16 23:59 23:59 23:59 23:59 Intake Total 610 210 Output Total 450 300 Balance 160 -90 Weight 175 lb 175 lb 3.2 oz Gen: NAD CVS: RRRR Lungs: CTA, no rales Abd: soft NT/ND Ext: no edema, clubbing or cyanosis CBC, BMP 09/19/16 05:50 09/19/16 05:50 Current Medications Apixaban (Eliquis -) 2.5 mg PO BID [facility] Last Admin: 09/19/16 09:43 Dose: 2.5 mg Aspirin (Asa -) 81 mg PO DAILY [facility] Last Admin: 09/19/16 09:43 Dose: 81 mg Atorvastatin Calcium (Lipitor -) 10 mg PO HS [facility] Last Admin: 09/18/16 21:20 Dose: 10 mg Carvedilol (Coreg -) 3.125 mg PO BID [facility] Last Admin: 09/19/16 09:43 Dose: 3.125 mg Colchicine (Colcrys -) 0.6 mg PO DAILY PRN PRN Reason: PAIN LEVEL 6-10 Gabapentin (Neurontin -) 100 mg PO HS [facility] Last Admin: 09/18/16 21:24 Dose: 100 mg Potassium Chloride (K-Dur -) 20 meq PO DAILY [facility] Tamsulosin HCl (Flomax -) 0.4 mg PO DAILY@0830 [facility] Last Admin: 09/19/16 09:43 Dose: 0.4 mg Torsemide (Demadex -) 40 mg PO DAILY [facility] Last Admin: 09/19/16 12:15 Dose: 40 mg a/P 81 year old Gentleman with PMhx of CHF with normal baseline renal function presented with sob and LE swelling and found to have MINGO with BUN/Cr of 35/1.8. Pt denies any history of CKD or kidney stones #Acute Kidney Injury likely secondary to cardio-renal syndrome Continue Demadex as per Cardiolgoy Trend BUN/Cr check Urine studies and renal US Supplament K for goal > 3.5 Trend Mg levels Avoid nsaids #CHF continue oral diuretics as per cardiology #Anemia consider checking iron profile no acute indicatinon for transfusion #CAD continue CCB Thank you full consult to follow Clay Guerrero DO
[2016-09-19] MEDS: GABAPENTIN 100 MG CAPSULE (FP) PO SCH (22:13)
[2016-09-19] MEDS: ATORVASTATIN CA 10 MG TABLET (FP) PO SCH (22:13)
[2016-09-20 08:01] LABS: BASOPHIL 0.7 % (0-2.0); EOSINOPHIL 2.6 % (0-4.5); MCHC 32.2 g/dl (32.0-35.9); MEAN PLT VOLUME 8.2 fl (7.5-11.1); NEUTROPHILS 65.4 % (42.8-82.8); PLATELET COUNT 140 K/MM3 (134-434); RDW 19.4 % (11.9-15.9); WHITE BLOOD COUNT 6.4 K/mm3 (4.0-10.0)
[2016-09-20 08:42] LABS: ALBUMIN 3.3 g/dl (3.4-5.0); CALCIUM 8.6 mg/dL (8.5-10.1); COCKROFT - GAULT 38.18; CREATININE 1.6 mg/dL (0.7-1.3); MAGNESIUM 1.4 mg/dL (1.8-2.4)
[2016-09-20 08:45] LABS: BILIRUBIN,TOTAL 2.8 mg/dL (0.2-1.0)
[2016-09-20] MEDS ORDERED: MAGNESIUM SULF 50% (8.12 MEQ/2 ML-1 GM VIAL) IVPB ONE (10:30)
--- NOTE | 2016-09-20 10:42 | PN ---
Progress Note, Physician History of Present Illness: Pt. w/o SOB, CP, palp., abd pain, N, V - Current Medication List Current Medications: Active Medications Apixaban (Eliquis -) 2.5 mg PO BID [facility] Last Admin: 09/19/16 22:13 Dose: 2.5 mg Aspirin (Asa -) 81 mg PO DAILY [facility] Last Admin: 09/19/16 09:43 Dose: 81 mg Atorvastatin Calcium (Lipitor -) 10 mg PO HS [facility] Last Admin: 09/19/16 22:13 Dose: 10 mg Carvedilol (Coreg -) 3.125 mg PO BID [facility] Last Admin: 09/19/16 22:13 Dose: 3.125 mg Colchicine (Colcrys -) 0.6 mg PO DAILY PRN PRN Reason: PAIN LEVEL 6-10 Gabapentin (Neurontin -) 100 mg PO HS [facility] Last Admin: 09/19/16 22:13 Dose: 100 mg Potassium Chloride (Potassium Chloride 10 Meq Premix Ivpb -) 100 mls @ 100 mls/ hr IVPB Q1H [facility] Stop: 09/20/16 12:59 Potassium Chloride (K-Dur -) 20 meq PO DAILY [facility] Potassium Chloride (Potassium Chloride Oral Liquid) 40 meq PO ONCE ONE Stop: 09/20/16 10:46 Tamsulosin HCl (Flomax -) 0.4 mg PO DAILY@0830 [facility] Last Admin: 09/19/16 09:43 Dose: 0.4 mg Torsemide (Demadex -) 40 mg PO DAILY [facility] Last Admin: 09/19/16 12:15 Dose: 40 mg - Objective Vital Signs: Vital Signs Temperature 97.8 F 09/20/16 06:00 Pulse Rate 70 09/20/16 06:00 Respiratory Rate 18 09/20/16 06:00 Blood Pressure 120/60 09/20/16 06:00 O2 Sat by Pulse Oximetry (%) 97 09/20/16 06:00 Constitutional: Yes: No Distress, Calm Cardiovascular: Yes: Regular Rate and Rhythm, S1, S2 Respiratory: Yes: Regular, Rales (scattered) Gastrointestinal: Yes: Normal Bowel Sounds, Soft. No: Tenderness Edema: No Labs: CBC, BMP 09/20/16 05:40 09/20/16 05:40 INR, PTT INR 1.95 (0.82-1.09) H D 09/18/16 10:59 Problem List - Problems (1) CHF (congestive heart failure) Assessment/Plan: on Diuretic Code(s): I50.9 - HEART FAILURE, UNSPECIFIED Qualifiers: Congestive heart failure type: combined Congestive heart failure chronicity: acute on chronic Qualified Code(s): I50.43 - Acute on chronic combined systolic (congestive) and diastolic (congestive) heart failure (2) Hypokalemia Assessment/Plan: Probable secondary to diuretic effect replete with IV KCl Code(s): E87.6 - HYPOKALEMIA (3) Hypomagnesemia Assessment/Plan: Probable secondary to diuretic effect replete with IV MgSO4 Code(s): E83.42 - HYPOMAGNESEMIA (4) MINGO (acute kidney injury) Code(s): N17.9 - ACUTE KIDNEY FAILURE, UNSPECIFIED (5) Urinary retention Assessment/Plan: increse Tamsulosin to BIB Code(s): R33.9 - RETENTION OF URINE, UNSPECIFIED (6) A-fib Assessment/Plan: on AC Code(s): I48.91 - UNSPECIFIED ATRIAL FIBRILLATION (7) Pulmonary hypertension Code(s): I27.2 - OTHER SECONDARY PULMONARY HYPERTENSION (8) Lower GI bleed Assessment/Plan: Hx/o GIB Code(s): K92.2 - GASTROINTESTINAL HEMORRHAGE, UNSPECIFIED Assessment/Plan To f/u with Cardio, Renal AM labs
[2016-09-20] MEDS ORDERED: POTASSIUM CHLORIDE ORAL LIQUID 20 MEQ/15 ML PO ONE (10:45)
[2016-09-20] MEDS: KCL 10 MEQ IVPB 100 ML IVPB SCH ×2 (11:29→13:34)
[2016-09-20] MEDS: ASPIRIN 81 MG CHEWABLE TABLETS PO SCH (11:30)
[2016-09-20] MEDS: TORSEMIDE 20 MG TABLET (FP) PO SCH (11:30)
[2016-09-20] MEDS: CARVEDILOL 3.125 MG TABLET (FP) PO SCH ×2 (11:31→21:34)
[2016-09-20] MEDS: APIXABAN 2.5 MG TABLET PO SCH ×2 (11:31→21:33)
[2016-09-20] MEDS: POTASSIUM CHLORIDE TABS 10 MEQ TABLET.ER (FP) PO SCH (11:32)
[2016-09-20] MEDS: TAMSULOSIN HCL 0.4 MG CAP.ER.24H (FP) PO SCH ×2 (12:14→21:34)
--- NOTE | 2016-09-20 13:07 | PN ---
Progress Note (short form) - Note Progress Note: s: feels back to normal. le edema resolved and no further sob when walking here ; no cp, sob, palps, dizzy o: Vital Signs Period Temp Pulse Resp BP Sys/Rivera Pulse Ox Last 24 Hr 97.4 F-97.8 F 69-78 18-20 120-144/45-69 97-99 Constitutional: Yes: Well Nourished, No Distress Eyes: No: Sclera Icterus Respiratory: Yes: CTA Bilaterally. No: Accessory Muscle Use, Rales, Wheezes Gastrointestinal: Yes: Normal Bowel Sounds. No: Distention, Hepatomegaly, Palpable Mass, Tenderness Cardiovascular: Yes: Pulse Irregular JVD: no Heart Sounds: Yes: S1, S2. No: Gallop Murmur: No: Systolic Murmur, Diastolic Murmur Extremities: No: Cold, Cool, Cyanosis Edema: No Integumentary: No: Jaundice Neurological: Yes: Alert, Oriented (x3) Psychiatric: No: Agitated Current Medications Generic Name Dose Route Start Last Admin Trade Name Freq PRN Reason Stop Dose Admin Apixaban 2.5 mg 09/18/16 22:00 09/20/16 11:31 Eliquis - PO 2.5 mg BID [facility] Administration Aspirin 81 mg 09/19/16 10:00 09/20/16 11:30 Asa - PO 81 mg DAILY [facility] Administration Atorvastatin Calcium 10 mg 09/18/16 22:00 09/19/16 22:13 Lipitor - PO 10 mg HS [facility] Administration Carvedilol 3.125 mg 09/18/16 22:00 09/20/16 11:31 Coreg - PO 3.125 mg BID [facility] Administration Colchicine 0.6 mg 09/18/16 17:06 Colcrys - PO DAILY PRN PAIN LEVEL 6-10 Gabapentin 100 mg 09/18/16 22:00 09/19/16 22:13 Neurontin - PO 100 mg HS [facility] Administration Potassium Chloride 20 meq 09/19/16 11:48 09/20/16 11:32 K-Dur - PO Not Given DAILY [facility] Tamsulosin HCl 0.4 mg 09/20/16 22:00 Flomax - PO BID@0830,2200 [facility] Torsemide 40 mg 09/19/16 12:00 09/20/16 11:30 Demadex - PO 40 mg DAILY [facility] Administration Zolpidem Tartrate 5 mg 09/20/16 22:00 Ambien - PO HS PRN INSOMNIA CBC, BMP 09/20/16 05:40 09/20/16 05:40 ekg 09/18: afib, HR controlled; R axis, normal intervals; no path q's; no ST-T abn tele: afib, good HRs ct chest: no pulm congestion, minimal b/l effs Echo 07/2015: afib, nl lvef, mild conc lvh, nl rv, mod orin, mild mr, mod tr, sev phtn. Echo 03/2015: Nl LV/RV, mild orin, mild MR, mod-sev TR, mild-mod AR, mod phtn Mibi 08/2014: no ischemia, nl EF. a/p: acute diastolic CHF: -03/2015 admit for chf, required thoracentesis for L pleural effusion--was exudative, ? details--has pulm f/u since then as well -08/03 pt presented to office with sxs of chf (orthopnea, gonzalez, inc le edema) and wt up to 185, from baseline of approx 180lbs--torsemide was increased from 20 qd to 40 qd--wt came down, chf sxs resolved -maintained on torsemide 40 qd then, did not f/u 09/03 as advised and admits he went back to 20mg qd dosing on his own -BNP 2K (from 4K with chf 2015 here) -CXR reviewed: diffuse interstitial pattern incr'd vs 10/02 elo at bases (though different technique, present film underpenetrated); + L effusion likely incr'd vs prior (no vasc redistribution/engorgement appreciated) -currently likely at least 5 lb volume-up with JVD to jaw -lasix 80 iv x 1 now--reassess weight, JVD and renal fxn in am -further lasix dose recs based on cardio assessment in am -09/19: after getting iv lasix last night pt feeling much better, back to baseline with no le edema and no gonzalez walking here. Wt also at baseline. Likely vol overload was due to pt self-reducing his torsemide dose from 40 qd to 20qd at home. Will give torsemide 40 po daily starting with today dose and if maintains vol status then ok for dc tomorrow on this dose. 09/20: vol stable, cr stable, cont same torsemide 40 qd with kcl 20 meq qd, pt will f/u in office 1-2 weeks. pulm HTN: -? WHO 2 (LV diast chf), ? hypoxia component ? other -no known VTE/PE history--on AC for afib -repeat echo afib -rate controlled on bb -CHADS-VASC 4. -LGIB 09/2015 to reversible cause-rectal prolapse-which was corrected and cleared by GI to resume AC--on Eliquis 2.5 bid with no further bleeding since then -cont AC mgmt as doing CKD -baseline creat 1.5-1.6 (08/16 last in our office) -up here, likely sec to acute chf/cardiorenal-->improved to baseline after iv lasix CAD s/p remote PCI (YESSI to rca 2005 at [facility]): -no suspected angina/ACS, no isch ecg changes -ce's neg x2 -cont ASA, coreg (3.125 bid), statin HTN -controlled -cont home meds
--- NOTE | 2016-09-20 14:45 | PN ---
Progress Note (short form) - Note Progress Note: PULMONARY States breathing continues to improve, almost at baseline. No chest pain. No cough or wheezing. Last Vital Signs Temp Pulse Resp BP Pulse Ox 97.8 F 72 18 101/58 97 09/20/16 13:26 09/20/16 13:26 09/20/16 13:26 09/20/16 13:26 09/20/16 09:00 Gen: NAD at rest Heart: RRR Lung: decreased breath sounds at the bases Abd: soft, nontender Ext: no edema CBC, BMP 09/20/16 05:40 09/20/16 05:40 Active Medications Apixaban (Eliquis -) 2.5 mg PO BID [facility] Last Admin: 09/20/16 11:31 Dose: 2.5 mg Aspirin (Asa -) 81 mg PO DAILY [facility] Last Admin: 09/20/16 11:30 Dose: 81 mg Atorvastatin Calcium (Lipitor -) 10 mg PO HS [facility] Last Admin: 09/19/16 22:13 Dose: 10 mg Carvedilol (Coreg -) 3.125 mg PO BID [facility] Last Admin: 09/20/16 11:31 Dose: 3.125 mg Colchicine (Colcrys -) 0.6 mg PO DAILY PRN PRN Reason: PAIN LEVEL 6-10 Gabapentin (Neurontin -) 100 mg PO HS [facility] Last Admin: 09/19/16 22:13 Dose: 100 mg Potassium Chloride (K-Dur -) 20 meq PO DAILY [facility] Last Admin: 09/20/16 11:32 Dose: Not Given Tamsulosin HCl (Flomax -) 0.4 mg PO BID@0830,2200 [facility] Torsemide (Demadex -) 40 mg PO DAILY [facility] Last Admin: 09/20/16 11:30 Dose: 40 mg Zolpidem Tartrate (Ambien -) 5 mg PO HS PRN PRN Reason: INSOMNIA A/P Acute on Chronic Diastolic Heart Failure Pulmonary HTN Atrial Fibrillation CAD CKD HTN - continue demadex - replete lytes - O2 as needed - rate controlled - continue anticoagulation - likely can d/c home in AM
--- NOTE | 2016-09-20 16:04 | PN ---
Progress Note, Physician Chief Complaint: The patient is sitting by his bed. Feeling much better, swelling has improved. No chest pains. Maintains excellent urine output. - Current Medication List Current Medications: Active Medications Apixaban (Eliquis -) 2.5 mg PO BID [facility] Last Admin: 09/20/16 11:31 Dose: 2.5 mg Aspirin (Asa -) 81 mg PO DAILY [facility] Last Admin: 09/20/16 11:30 Dose: 81 mg Atorvastatin Calcium (Lipitor -) 10 mg PO HS [facility] Last Admin: 09/19/16 22:13 Dose: 10 mg Carvedilol (Coreg -) 3.125 mg PO BID [facility] Last Admin: 09/20/16 11:31 Dose: 3.125 mg Colchicine (Colcrys -) 0.6 mg PO DAILY PRN PRN Reason: PAIN LEVEL 6-10 Gabapentin (Neurontin -) 100 mg PO HS [facility] Last Admin: 09/19/16 22:13 Dose: 100 mg Potassium Chloride (K-Dur -) 20 meq PO DAILY [facility] Last Admin: 09/20/16 11:32 Dose: Not Given Tamsulosin HCl (Flomax -) 0.4 mg PO BID@0830,2200 [facility] Torsemide (Demadex -) 40 mg PO DAILY [facility] Last Admin: 09/20/16 11:30 Dose: 40 mg Zolpidem Tartrate (Ambien -) 5 mg PO HS PRN PRN Reason: INSOMNIA - Objective Vital Signs: Vital Signs Temperature 97.5 F L 09/20/16 14:00 Pulse Rate 72 09/20/16 14:00 Respiratory Rate 20 09/20/16 14:00 Blood Pressure 123/55 09/20/16 14:00 O2 Sat by Pulse Oximetry (%) 97 09/20/16 09:00 Constitutional: Yes: Well Nourished, No Distress Eyes: Yes: Conjunctiva Clear HENT: Yes: Atraumatic Neck: Yes: WNL, Supple Cardiovascular: Yes: Pulse Irregular, S1, S2 Respiratory: Yes: Regular, CTA Bilaterally Gastrointestinal: Yes: Normal Bowel Sounds, Soft Edema: Yes Edema: LLE: Trace, RLE: Trace Labs: CBC, BMP 09/20/16 05:40 09/20/16 05:40 INR, PTT INR 1.95 (0.82-1.09) H D 09/18/16 10:59 Problem List - Problems (1) MINGO (acute kidney injury) Code(s): N17.9 - ACUTE KIDNEY FAILURE, UNSPECIFIED (2) CHF (congestive heart failure) Code(s): I50.9 - HEART FAILURE, UNSPECIFIED Qualifiers: Congestive heart failure type: combined Congestive heart failure chronicity: acute on chronic Qualified Code(s): I50.43 - Acute on chronic combined systolic (congestive) and diastolic (congestive) heart failure (3) Dyspnea Code(s): R06.00 - DYSPNEA, UNSPECIFIED Qualifiers: Dyspnea type: dyspnea on exertion Qualified Code(s): R06.09 - Other forms of dyspnea (4) History of colon polyps Code(s): Z86.010 - PERSONAL HISTORY OF COLONIC POLYPS (5) Hypokalemia Code(s): E87.6 - HYPOKALEMIA (6) Renal insufficiency Code(s): N28.9 - DISORDER OF KIDNEY AND URETER, UNSPECIFIED (7) A-fib Code(s): I48.91 - UNSPECIFIED ATRIAL FIBRILLATION (8) Arteriosclerotic heart disease (ASHD) Code(s): I25.10 - ATHSCL HEART DISEASE OF [place] CORONARY ARTERY W/O ANG PCTRS (9) Diabetes mellitus Code(s): E11.9 - TYPE 2 DIABETES MELLITUS WITHOUT COMPLICATIONS Qualifiers: Diabetes mellitus type: type 2 Assessment/Plan The patient's clinical status has improved significantly. Hypokalemia due to K loss in urine. No evidence of overt CHF. IV K riders were given. Will monitor the Renal / Electrolyte profile with you. Quita Williamson MD
[2016-09-20] MEDS: ATORVASTATIN CA 10 MG TABLET (FP) PO SCH (21:33)
[2016-09-20] MEDS: GABAPENTIN 100 MG CAPSULE (FP) PO SCH (21:33)
[2016-09-20] MEDS ORDERED: ZOLPIDEM TARTRATE 5 MG TABLET PO PRN (22:00)
[2016-09-21 08:02] LABS: CALCIUM 8.4 mg/dL (8.5-10.1); MAGNESIUM 1.9 mg/dL (1.8-2.4)
[2016-09-21 08:03] LABS: COCKROFT - GAULT 38.37; CREATININE 1.6 mg/dL (0.7-1.3)
[2016-09-21 08:04] LABS: MCH 27.2 pg (25.7-33.7); MCHC 32.6 g/dl (32.0-35.9); MEAN CELL VOLUME 83.7 fl (80-96); MEAN PLT VOLUME 8.2 fl (7.5-11.1); PLATELET COUNT 139 K/MM3 (134-434); RDW 19.3 % (11.9-15.9); WHITE BLOOD COUNT 6.7 K/mm3 (4.0-10.0)
[2016-09-21] MEDS: TAMSULOSIN HCL 0.4 MG CAP.ER.24H (FP) PO SCH (08:23)
[2016-09-21] MEDS ORDERED: ACETAMINOPHEN 325 MG TABLET (FP) PO PRN (08:45)
[2016-09-21] MEDS: ASPIRIN 81 MG CHEWABLE TABLETS PO SCH (09:24)
[2016-09-21] MEDS: TORSEMIDE 20 MG TABLET (FP) PO SCH (09:25)
[2016-09-21] MEDS: APIXABAN 2.5 MG TABLET PO SCH (09:25)
[2016-09-21] MEDS: POTASSIUM CHLORIDE TABS 10 MEQ TABLET.ER (FP) PO SCH (09:25)
[2016-09-21] MEDS: CARVEDILOL 3.125 MG TABLET (FP) PO SCH (09:26)
--- NOTE | 2016-09-21 09:30 | DS ---
Physical Examination Vital Signs: Vital Signs Temperature 98.4 F 09/21/16 06:00 Pulse Rate 87 09/21/16 06:00 Respiratory Rate 20 09/21/16 06:00 Blood Pressure 124/87 09/21/16 06:00 O2 Sat by Pulse Oximetry (%) 95 09/21/16 06:00 Findings/Remarks: Pt. w/o SOB, CP, palp., Dizziness, abd. pain, dysuria, difficulty urination. Constitutional: Yes: No Distress, Calm Cardiovascular: Yes: Regular Rate and Rhythm, S1, S2 Respiratory: Yes: Regular, CTA Bilaterally. No: Rales Gastrointestinal: Yes: Normal Bowel Sounds, Soft. No: Tenderness Edema: No Labs: CBC, BMP 09/21/16 05:35 09/21/16 05:35 Discharge Summary Reason For Visit: CHF Current Active Problems MINGO (acute kidney injury) (Acute) CHF (congestive heart failure) (Acute) Urinary retention (Acute) Hospital Course: Pt. came to ER c/o worsening SOB over one week, even while using oxygen supplementation at home, associated with decrease exercise tolerance; pt. was admitted for Acute CHF exacerbation, MINGO; pt was started on IV Lasix, admitted to telemetry; pt. was seen by Cardio (Dr. Valiente), Renal (Dr. Guerrero/ [place]). Pt developed hypokalemia and hypomagnesemia that required IV replacement. Pt was noticed to have urinary retention ( did not want to see here but agreed to see his Urologist next week). Pt. was noticed to have abnormal Chest CT scan ( mass like atelectasis in LLL), seen by Pulmonary (Dr. Hall), and recommended follow up chest CT scan in 6 to 8 months. Pt. also with elevated total Bilirubin, to see GI as outpatient.To to be DC'ed home today with f/u appt with PCP (Dr. Gila Harris), Cardio, Urology, Pulmonary. Condition: Stable - Instructions Diet, Activity, Other Instructions: Patient needs chest CT scan in 6 to 8 months outpt. Labs (CBC, CMP, Mg) next week. Gastroentology and Urology follow uo next week as outpt. Resume home O2. Referrals: Andrew Valiente MD [Staff Physician] - (next week) Vasquez Hall MD [Staff Physician] - (as acheduled or 5 to 6 months) Clay Guerrero MD [Staff Physician] - (in 2 to 4 weeks) Gila Harris MD [Primary Care Provider] - (next week; pt needs electrolytes checked, to see for urinary retention, to see GI for elevated total bilirubin) Disposition: HOME - Home Medications Comprehensive Discharge Medication List: Ambulatory Orders Aspirin [ASA -] 81 mg PO DAILY 08/22/14 Simvastatin [Zocor -] 20 mg PO HS 08/22/14 Gabapentin [Neurontin -] 100 mg PO HS 03/26/15 Carvedilol [Coreg -] 3.125 mg PO BID 10/03/15 Apixaban [Eliquis] 2.5 mg PO BID #0 10/05/15 Colchicine [Colcrys] 0.6 mg PO DAILY PRN #0 10/05/15 Magnesium Oxide [Mag-Ox -] 400 mg PO DAILY #30 tablet 09/21/16 Potassium Chloride [K-Dur -] 20 meq PO DAILY #30 tablet 09/21/16 Tamsulosin HCl [Flomax -] 0.4 mg PO BID@0830,2200 #60 cap 09/21/16 Torsemide [Demadex -] 40 mg PO DAILY #30 tablet 09/21/16
[2016-09-21] MEDS ORDERED: MAGNESIUM OXIDE 400 MG TABLET (FP) PO SCH (10:00)
--- NOTE | 2016-09-21 10:00 | PN ---
Progress Note (short form) - Note Progress Note: Patient's medical conditions and follow up were discussed at [facility] with patient , all questions were answered. Case was d/w Dr. Valiente. Time spent for managing patient DC: over 45 minutes. Problem List - Problems (1) CHF (congestive heart failure) Code(s): I50.9 - HEART FAILURE, UNSPECIFIED Qualifiers: Congestive heart failure type: combined Congestive heart failure chronicity: acute on chronic Qualified Code(s): I50.43 - Acute on chronic combined systolic (congestive) and diastolic (congestive) heart failure (2) Hypokalemia Code(s): E87.6 - HYPOKALEMIA (3) Hypomagnesemia Code(s): E83.42 - HYPOMAGNESEMIA (4) MINGO (acute kidney injury) Code(s): N17.9 - ACUTE KIDNEY FAILURE, UNSPECIFIED (5) Urinary retention Code(s): R33.9 - RETENTION OF URINE, UNSPECIFIED (6) A-fib Code(s): I48.91 - UNSPECIFIED ATRIAL FIBRILLATION (7) Pulmonary hypertension Code(s): I27.2 - OTHER SECONDARY PULMONARY HYPERTENSION (8) Lower GI bleed Code(s): K92.2 - GASTROINTESTINAL HEMORRHAGE, UNSPECIFIED
[2016-09-21 10:36] VITALS: BP 127/67; PULSE 77; TEMP 98.6
--- NOTE | 2016-09-21 11:40 | PN ---
Progress Note (short form) - Note Progress Note: s: feels back to normal. le edema resolved and no further sob when walking here ; no cp, sob, palps, dizzy o: Vital Signs Period Temp Pulse Resp BP Sys/Rivera Pulse Ox Last 24 Hr 97.5 F-98.6 F 71-87 18-20 101-143/55-87 95-97 Constitutional: Yes: Well Nourished, No Distress Eyes: No: Sclera Icterus Respiratory: Yes: CTA Bilaterally. No: Accessory Muscle Use, Rales, Wheezes Gastrointestinal: Yes: Normal Bowel Sounds. No: Distention, Hepatomegaly, Palpable Mass, Tenderness Cardiovascular: Yes: Pulse Irregular JVD: no Heart Sounds: Yes: S1, S2. No: Gallop Murmur: No: Systolic Murmur, Diastolic Murmur Extremities: No: Cold, Cool, Cyanosis Edema: No Integumentary: No: Jaundice Neurological: Yes: Alert, Oriented (x3) Psychiatric: No: Agitated Current Medications Generic Name Dose Route Start Last Admin Trade Name Freq PRN Reason Stop Dose Admin Acetaminophen 650 mg 09/21/16 08:45 09/21/16 09:27 Tylenol - PO 650 mg Q6H PRN Administration FEVER OR PAIN Apixaban 2.5 mg 09/18/16 22:00 09/21/16 09:25 Eliquis - PO 2.5 mg BID [facility] Administration Aspirin 81 mg 09/19/16 10:00 09/21/16 09:24 Asa - PO 81 mg DAILY [facility] Administration Atorvastatin Calcium 10 mg 09/18/16 22:00 09/20/16 21:33 Lipitor - PO 10 mg HS [facility] Administration Carvedilol 3.125 mg 09/18/16 22:00 09/21/16 09:26 Coreg - PO 3.125 mg BID [facility] Administration Colchicine 0.6 mg 09/18/16 17:06 Colcrys - PO DAILY PRN PAIN LEVEL 6-10 Gabapentin 100 mg 09/18/16 22:00 09/20/16 21:33 Neurontin - PO 100 mg HS [facility] Administration Magnesium Oxide 400 mg 09/21/16 10:00 09/21/16 10:23 Mag-Ox - PO 400 mg DAILY [facility] Administration Potassium Chloride 20 meq 09/19/16 11:48 09/21/16 09:25 K-Dur - PO 20 meq DAILY [facility] Administration Tamsulosin HCl 0.4 mg 09/20/16 22:00 09/21/16 08:23 Flomax - PO 0.4 mg BID@0830,2200 [facility] Administration Torsemide 40 mg 09/19/16 12:00 09/21/16 09:25 Demadex - PO 40 mg DAILY [facility] Administration Zolpidem Tartrate 5 mg 09/20/16 22:00 Ambien - PO HS PRN INSOMNIA CBC, BMP 09/21/16 05:35 09/21/16 05:35 ekg 09/18: afib, HR controlled; R axis, normal intervals; no path q's; no ST-T abn tele: afib, good HRs ct chest: no pulm congestion, minimal b/l effs Echo 07/2015: afib, nl lvef, mild conc lvh, nl rv, mod orin, mild mr, mod tr, sev phtn. Echo 03/2015: Nl LV/RV, mild orin, mild MR, mod-sev TR, mild-mod AR, mod phtn Mibi 08/2014: no ischemia, nl EF. a/p: acute diastolic CHF: -03/2015 admit for chf, required thoracentesis for L pleural effusion--was exudative, ? details--has pulm f/u since then as well -08/03 pt presented to office with sxs of chf (orthopnea, gonzalez, inc le edema) and wt up to 185, from baseline of approx 180lbs--torsemide was increased from 20 qd to 40 qd--wt came down, chf sxs resolved -maintained on torsemide 40 qd then, did not f/u 09/03 as advised and admits he went back to 20mg qd dosing on his own -BNP 2K (from 4K with chf 2015 here) -CXR reviewed: diffuse interstitial pattern incr'd vs 10/02 elo at bases (though different technique, present film underpenetrated); + L effusion likely incr'd vs prior (no vasc redistribution/engorgement appreciated) -currently likely at least 5 lb volume-up with JVD to jaw -lasix 80 iv x 1 now--reassess weight, JVD and renal fxn in am -further lasix dose recs based on cardio assessment in am -09/19: after getting iv lasix last night pt feeling much better, back to baseline with no le edema and no gonzalez walking here. Wt also at baseline. Likely vol overload was due to pt self-reducing his torsemide dose from 40 qd to 20qd at home. Will give torsemide 40 po daily starting with today dose and if maintains vol status then ok for dc tomorrow on this dose. 09/20-: vol stable, cr stable, cont same torsemide 40 qd with kcl 20 meq qd, pt will f/u in office 1-2 weeks. pulm HTN: -? WHO 2 (LV diast chf), ? hypoxia component ? other -no known VTE/PE history--on AC for afib -repeat echo afib -rate controlled on bb -CHADS-VASC 4. -LGIB 09/2015/ to reversible cause-rectal prolapse-which was corrected and cleared by GI to resume AC--on Eliquis 2.5 bid with no further bleeding since then -cont AC mgmt as doing CKD -baseline creat 1.5-1.6 (08/16 last in our office) -up here, likely sec to acute chf/cardiorenal-->improved to baseline after iv lasix -imaging reveals some post void residual in bladder, will have outpt f/u CAD s/p remote PCI ([facility]ESSI to [facility]ca 2005 at [facility]): -no suspected angina/ACS, no isch ecg changes -ce's neg x2 -cont ASA, coreg (3.125 bid), statin HTN -controlled -cont home meds
== END 2016-09-21 13:08 | disposition home or self-care (01) | DRG 291 ==
LOC: JER 09:50 → JERBED 12:31 → J4W 14:25
PROVIDERS: ADMIT Specialist; ATTEND Specialist
DX: I13.0 Hypertensive heart and chronic kidney disease with heart failure and stage 1 through stage 4 chronic kidney disease, or unspecified chronic kidney disease (principal); I50.31 Acute diastolic (congestive) heart failure; J98.11 Atelectasis; N17.9 Acute kidney failure, unspecified; K92.2 Gastrointestinal hemorrhage, unspecified; I25.10 Atherosclerotic heart disease of native coronary artery without angina pectoris; I48.91 Unspecified atrial fibrillation; E78.5 Hyperlipidemia, unspecified; I27.2 Other secondary pulmonary hypertension; K27.9 Peptic ulcer, site unspecified, unspecified as acute or chronic, without hemorrhage or perforation; N40.0 Benign prostatic hyperplasia without lower urinary tract symptoms; M54.5 Low back pain; M10.9 Gout, unspecified; J30.9 Allergic rhinitis, unspecified; I07.1 Rheumatic tricuspid insufficiency; K21.9 Gastro-esophageal reflux disease without esophagitis; E11.22 Type 2 diabetes mellitus with diabetic chronic kidney disease; N18.9 Chronic kidney disease, unspecified; D64.9 Anemia, unspecified; E87.6 Hypokalemia; E83.42 Hypomagnesemia; R33.9 Retention of urine, unspecified; Z87.891 Personal history of nicotine dependence; Z95.5 Presence of coronary angioplasty implant and graft; Z86.010 Personal history of colon polyps
CPT/HCPCS: 36415; 71010-TC; 71250-TC; 76705-TC; 76775-TC; 76856-TC; 80048; 80053; 80076; 81003; 82550; 82553; 82607; 82728; 83540; 83615; 83735; 83880; 84443; 84484; 85025; 85027; 85610; 87086; 93005; 93010; 99283-25

== ENCOUNTER 2018-05-30 05:58 | Inpatient (IN) | payer OTHER ==
[2018-05-30 06:53] LABS: BASO % 0.8 % (0-2.0); EOS % 1.3 % (0-4.5); HEMATOCRIT 37.5 % (35.4-49); HEMOGLOBIN 12.9 GM/dL (11.7-16.9); MCH 33.8 pg (25.7-33.7); MCHC 34.3 g/dl (32.0-35.9); MEAN CELL VOLUME 98.6 fl (80-96); MEAN PLT VOLUME 9.8 fl (7.5-11.1); MONO % 13.1 % (3.8-10.2); NEUT % 64.8 % (42.8-82.8); PLATELET COUNT 79 K/MM3 (134-434); RDW 17.6 % (11.9-15.9); WHITE BLOOD COUNT 4.9 K/mm3 (4.0-10.0)
--- NOTE | 2018-05-30 07:13 | PDOC ---
History of Present Illness - General Chief Complaint: Shortness of Breath Stated Complaint: SOB Time Seen by Provider: 05/30/18 07:12 History Source: Patient - History of Present Illness Initial Comments: 05/30/18 07:18 83 year old male with a PMH of CHF, CAD (s/p stent x2), Afib (on Eliquis), CKD, lower GIB, h/o pleural effusion, NIDDM, HLD, Pulmonary HTN, BPH and Gout presents with acute onset of shortness of breath. Patient states he was awakened from sleep around 4 a.m. this morning to go to the bathroom as he normally does and while walking to the bathroom stated he felt short of breath and lightheaded. Patient returned to the bedroom sat on the edge of the bed and symptoms resolved after 1 hour however patient's daughter encouraged him to come to the ED for further evaluation. States he intermittently uses 2 L of [place] O2 @ home, however "maybe I need to use it more." Endorses B/L increased leg swelling that has been present for 2 weeks. Denies chest pain, palpitations, diaphoresis, numbness/tingling. Evaluated by his PMD (Dr. Dailey) yesterday and told to increase his Lasix dose from 40 mg BID to 60 mg BID. Took an extra 20 mg of Lasix yesterday evening (60 total yesterday). Did not take his medications this morning. The patient denies abdominal pain, nausea/vomiting, diarrhea/constiption, fevers /chills, recent travel or sick contacts. NKDA Surgical: Stent x2, Tonsillectomy PMD: Dr. Dailey Cardiology: Dr. Valiente As per EMR, patient evaluated in our ED in 2017 for shortness of breath and B/L LE swelling, was admitted for CHF exacerbation. Past History - Past Medical History Allergies/Adverse Reactions: Allergies Allergy/AdvReac Type Severity Reaction Status Date / Time No Known Allergies Allergy Verified 05/30/18 06:16 Home Medications: Ambulatory Orders Simvastatin [Zocor -] 20 mg PO HS 08/22/14 Gabapentin [Neurontin -] 100 mg PO HS 03/26/15 Carvedilol [Coreg -] 3.125 mg PO BID 10/03/15 Apixaban [Eliquis] 2.5 mg PO BID #0 10/05/15 Colchicine [Colcrys] 0.6 mg PO DAILY PRN #0 10/05/15 Magnesium Oxide [Mag-Ox -] 400 mg PO DAILY #30 tablet 09/21/16 Potassium Chloride [K-Dur -] 20 meq PO DAILY #30 tablet 09/21/16 Tamsulosin HCl [Flomax -] 0.4 mg PO BID@0830,2200 #60 cap 09/21/16 Torsemide [Demadex -] 40 mg PO DAILY #30 tablet 09/21/16 Anemia: No Cardiac Disorders: Yes (afib) COPD: No Diabetes: Yes GI Disorders: Yes (gerd, constipation) HTN: Yes Hypercholesterolemia: Yes - Surgical History Cardiac Surgery: Yes (2 stents) Orthopedic Surgery: Yes (carpal tunnel surgery B/L) - Suicide/Smoking/Psychosocial Hx Smoking History: Never smoked Have you smoked in the past 12 months: No Number of Cigarettes Smoked Daily: 0 If you are a former smoker, when did you quit?: 1979 Information on smoking cessation initiated: No 'Breaking Loose' booklet given: 09/18/16 Hx Alcohol Use: No Drug/Substance Use Hx: No Substance Use Type: None Hx Substance Use Treatment: No Review of Systems - Review of Systems Constitutional: No: Chills, Fever HEENTM: No: Recent change in vision Respiratory: Yes: Shortness of Breath. No: Cough, Wheezing, Hemoptysis Cardiac (ROS): Yes: Lightheadedness. No: Chest Pain, Palpitations, Syncope, Chest Tightness ABD/GI: No: Constipated, Diarrhea, Nausea, Vomiting : No: Burning, Dysuria *Physical Exam - Vital Signs Last Vital Signs Temp Pulse Resp BP Pulse Ox 97.7 F 68 24 H 122/67 98 05/30/18 06:16 05/30/18 06:33 05/30/18 06:16 05/30/18 06:16 05/30/18 06:33 - Physical Exam General Appearance: Yes: Nourished, Appropriately Dressed HEENT: positive: Normal Voice, Hearing Grossly Normal Neck: positive: Trachea midline, Supple Respiratory/Chest: positive: Lungs Clear, Other (decreased breath sounds @ bases B/L). negative: Respiratory Distress, Accessory Muscle Use, Labored Respiration, Rapid RR, Crackles, Wheezing Cardiovascular: positive: S1, S2, Other (Grade I systolic murmur best appreciated in R 2nd intercostal space- ? murmur; 3+ pitting edema B/L (new from baseline)) Gastrointestinal/Abdominal: positive: Normal Bowel Sounds, Soft. negative: Distended, Guarding, Rebound, Tenderness, Hernia, Mass Integumentary: positive: Normal Color, Dry, Warm Neurologic: positive: Fully Oriented, Alert Moderate Sedation - Procedure Monitoring Vital Signs: Procedure Monitoring Vital Signs Temperature 97.7 F 05/30/18 06:16 Pulse Rate 68 05/30/18 06:33 Respiratory Rate 24 H 05/30/18 06:16 Blood Pressure 122/67 05/30/18 06:16 O2 Sat by Pulse Oximetry (%) 98 05/30/18 06:33 Heart Score/ECG Review - ECG Impressions Comment:: 05/31/18 15:42 EKG shows AFib with LAD, RBB c/w previous EKG dated 09/18/16; Wide QRS new since prior EKG dated 09/18/16 ED Treatment Course - LABORATORY CBC & Chemistry Diagram: 05/31/18 06:30 05/31/18 06:30 - ADDITIONAL ORDERS Additional order review: 05/30/18 06:18 RBC 3.80 L MCV 98.6 H MCHC 34.3 RDW 17.6 H MPV 9.8 D Neutrophils % 64.8 Lymphocytes % 20.0 Monocytes % 13.1 H Eosinophils % 1.3 Basophils % 0.8 Medical Decision Making - Medical Decision Making 05/30/18 07:41 83 year old male with acute onset of shortness of breath + B/L LE edema. VS remarkable for tachypnea (24) and hypoxia (93%) @ presentation. PE shows B/L LE edema (new from baseline), diminished breath sounds @ B/L lung bases. Frontal diagnosis: Acute CHF exacerbation (+/- pleural effusion), r/o ACS, PNA and anemia (the latter two less likely). Will obtain EKG, Troponin/BNP, CXR. Cardiac monitoring. Reassess. EKG non-ischemic as documented in EKG section of EMR 05/30/18 08:00 Troponin (-) x1 BNP 3107 (previous BNP 2085) Cr 2.3 (previously 1.6 in 2017) Will give OTD of 40 Lasix IV (BP 112/58) and admit for CHF exacerbation w/ superimposed MINGO 05/30/18 08:35 Patient reevaluated @ bedside VSS Amenable to admission Call placed to Dr. Milli Sarmiento 05/30/18 08:41 Attending (Dr. Tomlinson) discussed case w/ Dr. Sarmiento. Will admit patient to Tele OBS Clinical Impression: CHF exacerbation, MINGO *DC/Admit/Observation/Transfer Diagnosis at time of Disposition: CHF exacerbation, Lightheaded, Shortness of breath - Discharge Dispostion Condition at time of disposition: Stable - Referrals - Patient Instructions - Post Discharge Activity
[2018-05-30 07:23] LABS: ALBUMIN 3.3 g/dl (3.4-5.0); ALK PHOS 206 U/L (45-117); ANION GAP 9 MMOL/L (8-16); BILIRUBIN,TOTAL 3.3 mg/dL (0.2-1); BLOOD UREA NITROGEN 50 mg/dL (7-18); CALCIUM 7.8 mg/dL (8.5-10.1); CHLORIDE 102 mmol/L (98-107); CO2 27 mmol/L (21-32); CREATININE 2.3 mg/dL (0.55-1.3); GLUCOSE,RANDOM 95 mg/dL (74-106); N-TERMINAL BNP 3107.2 pg/ml (5-450); POTASSIUM 3.6 mmol/L (3.5-5.1); SGOT/AST 26 U/L (15-37); SGPT/ALT 24 U/L (13-61); SODIUM 138 mmol/L (136-145)
[2018-05-30 07:34] LABS: INR 1.89 (0.83-1.09); PROTHROMBIN TIME (PATIENT) 22.5 SEC (9.7-13.0)
[2018-05-30] MEDS ORDERED: FUROSEMIDE 40 MG/4 ML INJECTABLE VIAL IVPUSH ONE ×2 (07:57→15:17)
--- NOTE | 2018-05-30 08:01 | PDOC ---
Attending Attestation - Resident Resident Name: Viviana Yost - ED Attending Attestation I have performed the following: I have examined & evaluated the patient, The case was reviewed & discussed with the resident, I agree w/resident's findings & plan, Exceptions are as noted - HPI HPI: 05/30/18 07:55 83yo M hx afib (on eliquis), chf, cad, bph presents to the ED with episode of SOB and lightheadedness 4am that self resolved after an hour. Has had recent progressive SOB over a few weeks. Takes lasix 40mg daily, saw PMD Dr. Harris who was increased dose from 40 to 60mg PO with minimal improvement. No associated chest pain, fevers, chills, cough, abd pain, N/V, dizziness, diaphoresis. - Physicial Exam PE: 05/30/18 08:02 agree with resident exam - Medical Decision Making 05/30/18 08:02 83yo M hx MMP including afib, chf presents to the ED with progressive SOB a/w LE edema, episode of lightheadness overnight. Vitals with tachypnea, hypoxia. Exam with diminsihed BS at the bases, symmetric LE edema. Labs with elevated BNP and trop leak consistent with likely CHF exacerbation. Plan for IV diuretics , admission. *DC/Admit/Observation/Transfer Diagnosis at time of Disposition: CHF exacerbation, Lightheaded, Shortness of breath - Discharge Dispostion Condition at time of disposition: Stable Decision to Admit order: Yes - Referrals Referrals: Gila Harris MD [Primary Care Provider] - - Patient Instructions - Post Discharge Activity - Attestations Physician Attestion: 05/30/18 08:41 I, Dr. Heath Tomlinson MD, attest that this document has been prepared under my direction and personally reviewed by me in its entirety. I further attest, that it accurately reflects all work, treatment, procedures and medical decision -making performed by me. Heart Score/ECG Review #1 05/30/18 08:05 Twelve-lead EKG was performed and reviewed by me. Atrial fibrillation with left axis deviation. Right bundle branch block. Compared to previous EKG wide QRS is new.
[2018-05-30] MEDS ORDERED: FUROSEMIDE 40 MG/4 ML INJECTABLE VIAL ONE (08:16)
--- NOTE | 2018-05-30 10:46 | HP ---
Admitting History and Physical - Primary Care Physician PCP: Milli Sarmiento S - Admission Chief Complaint: SOB History of Present Illness: 83 year old male with a PMH of CHF, CAD (s/p stent x2), Afib (on Eliquis), CKD, lower GIB, h/o pleural effusion, NIDDM, HLD, Pulmonary HTN, BPH and Gout presents with acute onset of shortness of breath. Patient states he was awakened from sleep around 4 a.m. this morning to go to the bathroom as he normally does and while walking to the bathroom stated he felt short of breath and lightheaded. Patient returned to the bedroom sat on the edge of the bed and symptoms resolved after 1 hour however patient's daughter encouraged him to come to the ED for further evaluation. States he intermittently uses 2 L of [place] O2 @ home, however "maybe I need to use it more." Endorses B/L increased leg swelling that has been present for 2 weeks. Denies chest pain, palpitations, diaphoresis, numbness/tingling. Evaluated by his PMD (Dr. Dailey) yesterday and told to increase his Lasix dose from 40 mg BID to 60 mg BID. Took an extra 20 mg of Lasix yesterday evening (60 total yesterday). Did not take his medications this morning. Still SOB, came to ER accompanied by his daughter. History Source: Patient, Family Member Limitations to Obtaining History: No Limitations - Past Medical History Cardiovascular: Yes: AFIB (on AC), CAD, CHF, HTN, Hyperlipdemia, Pulmonary Hypertension, Other (tricuspid regurgitation and aortic sclerosis, coronary stenting > 10 years ago). No: Aneurysm, Aortic Insufficiency, Aortic Stenosis Pulmonary: Yes: Other (left pleural effusion requiring thoracentesis 04/03) Gastrointestinal: Yes: Constipation, Peptic Ulcer Disease, Other (colon polyps) Renal/: Yes: Renal Inusuff (new finding today), BPH Musculoskeletal: Yes: Chronic low back pain Rheumatology: Yes: Gout ENT: Yes: Allergic Rhinitis Endocrine: Yes: Diabetes Mellitus - Past Surgical History Past Surgical History: Yes: Colonoscopy, Tonsillectomy, Upper Endoscopy - Smoking History Smoking history: Never smoked Have you smoked in the past 12 months: No Aproximately how many cigarettes per day: 0 If you are a former smoker, when did you quit?: 1979 - Alcohol/Substance Use Hx Alcohol Use: No History of Substance Use: reports: None - Social History Usual Living Arrangement: Yes: Alone ADL: Independent 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 History of Recent Travel: No Home Medications - Allergies Allergies/Adverse Reactions: Allergies Allergy/AdvReac Type Severity Reaction Status Date / Time No Known Allergies Allergy Verified 05/30/18 06:16 - Home Medications Home Medications: Ambulatory Orders Simvastatin [Zocor -] 20 mg PO HS 08/22/14 Gabapentin [Neurontin -] 100 mg PO HS 03/26/15 Carvedilol [Coreg -] 3.125 mg PO BID 10/03/15 Apixaban [Eliquis] 2.5 mg PO BID #0 10/05/15 Colchicine [Colcrys] 0.6 mg PO DAILY PRN #0 10/05/15 Magnesium Oxide [Mag-Ox -] 400 mg PO DAILY #30 tablet 09/21/16 Potassium Chloride [K-Dur -] 20 meq PO DAILY #30 tablet 09/21/16 Tamsulosin HCl [Flomax -] 0.4 mg PO BID@0830,2200 #60 cap 09/21/16 Torsemide [Demadex -] 40 mg PO DAILY #30 tablet 09/21/16 Family Disease History - Family Disease History Family Disease History: Heart Disease: Father ( 87), Mother ( 89), Brother ( 41), Sister ( 93) Review of Systems - Review of Systems Constitutional: denies: Chills, Fever Eyes: denies: Blind Spots, Blurred Vision, Double Vision HENT: denies: Difficult Swallowing, Ear Pain, Epistaxis, Nasal Congestion Neck: denies: Stiffness, Tenderness Cardiovascular: reports: Edema, Shortness of Breath. denies: Chest Pain, Palpitations Respiratory: reports: SOB, SOB on Exertion. denies: Cough, Wheezing Genitourinary: denies: Dysuria, Flank Pain Musculoskeletal: denies: Back Pain, Extremity Pain Neurological: denies: Change in LOC, Change in Speech, Confusion Endocrine: denies: Excessive Sweating Hematology/Lymphatic: denies: Easily Bruised, Excessive Bleeding Psychiatric: denies: Altered Sleep Pattern, Anxiety, Depression Physical Examination Vital Signs: Vital Signs Temperature 97.7 F 05/30/18 06:16 Pulse Rate 68 05/30/18 06:33 Respiratory Rate 24 H 05/30/18 06:16 Blood Pressure 122/67 05/30/18 06:16 O2 Sat by Pulse Oximetry (%) 99 05/30/18 07:15 Constitutional: Yes: No Distress, Calm Eyes: Yes: Conjunctiva Clear HENT: Yes: Atraumatic Neck: Yes: Supple Cardiovascular: Yes: Regular Rate and Rhythm Respiratory: Yes: Diminished Gastrointestinal: Yes: Soft. No: Tenderness Renal/: No: CVA Tenderness - Left, CVA Tenderness - Right Musculoskeletal: No: Joint Stiffness, Joint Swelling Extremities: No: Cold, Cool, Cyanosis Edema: Yes (1+ pretibial bilat) Integumentary: No: Rash, Venous Stasis Changes Neurological: Yes: WNL, Alert, Oriented ...Motor Strength: WNL Psychiatric: Yes: WNL, Alert, Oriented. No: Agitated, Suicidal Ideation Labs: CBC, BMP 05/30/18 06:18 05/30/18 06:26 Imaging - Results Chest X-ray: Report Reviewed Other: Report Reviewed Assessment/Plan 83 year old male with a PMH of CHF, CAD (s/p stent x2), Afib (on Eliquis), CKD, lower GIB, h/o pleural effusion, NIDDM, HLD, Pulmonary HTN, BPH and Gout presents with acute onset of shortness of breath not improved after he increased his Lasix dose from 40 mg BID to 60 mg BID. admit for CHF exac cardiology eval f/u labs, CE; TELEMETRY FOR ARRYTHMIA d/w pt and daughter at bedside falls PFX d/w pt's PCP dr Harris
--- NOTE | 2018-05-30 11:55 | EKG ---
Test Reason : Blood Pressure : / mmHG Vent. Rate : 062 BPM Atrial Rate : 062 BPM P-R Int : 000 ms QRS Dur : 126 ms QT Int : 532 ms P-R-T Axes : 000 -85 020 degrees QTc Int : 539 ms ATRIAL FIBRILLATION LEFT AXIS DEVIATION RIGHT BUNDLE BRANCH BLOCK INFERIOR INFARCT , AGE UNDETERMINED ANTEROSEPTAL INFARCT , AGE UNDETERMINED ABNORMAL ECG Confirmed by CLARY ABEL MD ([id number]) on 05/30/2018 11:55:08 AM Referred By: Confirmed By:CLARY ABEL MD
--- NOTE | 2018-05-30 12:54 | CON.CARD ---
Cardiology Consult (text) - Consultation Consultation Note: cc: sob, le edema hpi: 83 m hx htn, pafib,dm, hld, dchf, venous insuff, ckd (cr 1.6), cad s/p marion to rca 2005 at [facility], here with sob, le edema. Over holidays ate a lot of salty food and then started to notice increased le edema and gonzalez. No cp palps dizzy loc pnd orthopnea. Got iv lasix in er and feeling better now. Sees me for cardio. pmh: per hpi psh: nc fam: nc social: no tob ros: per hpi; no nvd fever cough garland vision changes gib hematuria dysuria meds: Home Medications Medication Instructions Recorded RX: Simvastatin [Zocor -] 20 mg PO HS 08/22/14 RX: Gabapentin [Neurontin -] 100 mg PO HS 03/26/15 RX: Carvedilol [Coreg -] 3.125 mg PO BID 10/03/15 RX: Apixaban [Eliquis] 2.5 mg PO BID #0 10/05/15 RX: Colchicine [Colcrys] 0.6 mg PO DAILY PRN #0 10/05/15 RX: Magnesium Oxide [Mag-Ox -] 400 mg PO DAILY #30 tablet 09/21/16 RX: Potassium Chloride [K-Dur -] 20 meq PO DAILY #30 tablet 09/21/16 RX: Tamsulosin HCl [Flomax -] 0.4 mg PO BID@0830,2200 #60 cap 09/21/16 RX: Torsemide [Demadex -] 40 mg PO DAILY #30 tablet 09/21/16 pe: Vital Signs Period Temp Pulse Resp BP Sys/Rivera Pulse Ox Last 24 Hr 97.7 F-98.0 F 59-68 18-24 112-122/58-67 93-100 nad, no jvd irreg, s1s2 no mrg cta b/l, nl eff aaox3 1+le edema b/l, no c/c abd nt nd pos bs no jaundice diaphoresis no carotid bruits, pos dp pt Laboratory Last Values WBC 4.9 K/mm3 (4.0-10.0) 05/30/18 06:18 RBC 3.80 M/mm3 (4.00-5.60) L 05/30/18 06:18 Hgb 12.9 GM/dL (11.7-16.9) 05/30/18 06:18 Hct 37.5 % (35.4-49) D 05/30/18 06:18 MCV 98.6 fl (80-96) H 05/30/18 06:18 MCH 33.8 pg (25.7-33.7) H D 05/30/18 06:18 MCHC 34.3 g/dl (32.0-35.9) 05/30/18 06:18 RDW 17.6 % (11.9-15.9) H 05/30/18 06:18 Plt Count 79 K/MM3 (134-434) L D 05/30/18 06:18 MPV 9.8 fl (7.5-11.1) D 05/30/18 06:18 Absolute Neuts (auto) 3.2 K/mm3 (1.5-8.0) 05/30/18 06:18 Neutrophils % 64.8 % (42.8-82.8) 05/30/18 06:18 Lymphocytes % 20.0 % (8-40) 05/30/18 06:18 Monocytes % 13.1 % (3.8-10.2) H 05/30/18 06:18 Eosinophils % 1.3 % (0-4.5) 05/30/18 06:18 Basophils % 0.8 % (0-2.0) 05/30/18 06:18 Nucleated RBC % 0 % (0-0) 05/30/18 06:18 PT with INR 22.50 SEC (9.7-13.0) H 05/30/18 06:18 INR 1.89 (0.83-1.09) H 05/30/18 06:18 Sodium 138 mmol/L (136-145) 05/30/18 06:26 Potassium 3.6 mmol/L (3.5-5.1) 05/30/18 06:26 Chloride 102 mmol/L (98-107) 05/30/18 06:26 Carbon Dioxide 27 mmol/L (21-32) 05/30/18 06:26 Anion Gap 9 MMOL/L (8-16) 05/30/18 06:26 BUN 50 mg/dL (7-18) H 05/30/18 06:26 Creatinine 2.3 mg/dL (0.55-1.3) H 05/30/18 06:26 Creat Clearance w eGFR 27.16 (>60) 05/30/18 06:26 Random Glucose 95 mg/dL (74-106) 05/30/18 06:26 Calcium 7.8 mg/dL (8.5-10.1) L 05/30/18 06:26 Total Bilirubin 3.3 mg/dL (0.2-1) H 05/30/18 06:26 AST 26 U/L (15-37) 05/30/18 06:26 ALT 24 U/L (13-61) 05/30/18 06:26 Alkaline Phosphatase 206 U/L (45-117) H 05/30/18 06:26 Creatine Kinase 85 IU/L (26-308) 05/30/18 06:26 Troponin I 0.13 ng/ml (0.00-0.05) H 05/30/18 06:26 B-Natriuretic Peptide 3107.2 pg/ml (5-450) H 05/30/18 06:26 Total Protein 7.0 g/dl (6.4-8.2) 05/30/18 06:26 Albumin 3.3 g/dl (3.4-5.0) L 05/30/18 06:26 ecg: sr, new rbbb cxr: small left eff echo 05/2018: tds; mild dec lvef, rv mod dil and mod dec fcn, orin, mild mr, sev tr, mild ar, rvsp 40-50 echo 05/2017: nl lvef, mild conc lvh, nl rv, mild orin, mild ar, mod tr, mod phtn , ivc dilated Echo 07/2015: afib, nl lvef, mild conc lvh, nl rv, mod orin, mild mr, mod tr, sev phtn. Echo 03/2015: Nl LV/RV, mild orin, mild MR, mod-sev TR, mild-mod AR, mod phtn Mibi 08/2014: no ischemia, nl EF. a/p: 83 m hx htn, pafib,dm, hld, dchf, venous insuff, ckd (cr 1.6), cad s/p marion to rca 2005 at [facility], here with sob, le edema. acute diastolic CHF: -admitted 03/2015 for mild vol overload secondary to increased salt intake. after several days of iv lasix he felt better but still with significant left effusion so had thoracentesis showing exudative effusion. has been following with pulm as well. -here now with similar episode. vol status had been stable on torsemide 40 qd but after eating a lot of salty foods over holiday he now has some vol overload. -will diurese with iv lasix 40 bid to start, daily cr/lytes/wt htn: -cont home meds pafib: Rate controlled on bb. Continue eliquis. hld: Continue statin. cad s/p remote pci: -no signs acs -Continue bb, statin. No asa as he is on ac. -ecg showing new rbbb and lvef mildly reduced compared to last year. no signs of acute acs but after chf resolved will send for mibi to see if any ischemic cause.
--- NOTE | 2018-05-30 13:49 | ECHO ---
Name: DOLORES KRAUSE Exam:Adult Echocardiogram Study Date: 05/30/2018 11:16 AM Age: 83 yrs Reason For Study: CHF Height: 66 in Weight: 172 lb BSA: 1.9 m2 MMode/2D Measurements & Calculations IVSd: 1.4 cm Ao root diam: 2.9 cm LVIDd: 3.7 cm LA dimension: 4.7 cm LVIDs: 2.5 cm LVPWd: 1.4 cm EDV(Teich): 58.8 ml LAV (MOD-bp): 78.5 ml ESV(Teich): 22.8 ml Doppler Measurements & Calculations MV E max rahul: 85.9 cm/sec AI P1/2t: 558.8 msec MV A max rahul: 38.8 cm/sec MV E/A: 2.2 MV dec time: 0.15 sec AI max rahul: 225.3 cm/sec MR max rahul: 374.1 cm/sec AI max P.8 mmHg MR max P.0 mmHg AI dec slope: 118.1 cm/sec2 TR max rahlu: 302.7 cm/sec Med Peak E' Rahul: 4.2 cm/sec TR max P.7 mmHg Med E/e': 20.2 Lat Peak E' Rahul: 5.8 cm/sec Lat E/e': 14.9 PI Vmax: 217.2 cm/sec Procedure The study was technically difficult with many images being suboptimal in quality. Left Ventricle There is borderline concentric left ventricular hypertrophy. Left ventricular systolic function is mi ldly reduced. Ejection Fraction = 45-50%. Regional wall motion abnormalities cannot be excluded due to goldstein ited visualization. There is mild to moderate global hypokinesis of the left ventricle. Right Ventricle The right ventricle is moderately dilated. The right ventricular systolic function is moderately redu gissell. Atria The left atrium is moderately dilated. The right atrium is moderate to severely dilated. Mitral Valve The mitral valve is grossly normal. There is no mitral valve stenosis. There is mild mitral regurgita tion. Tricuspid Valve The tricuspid valve is not well visualized, but is grossly normal. There is severe tricuspid regurgit ation. Right ventricular systolic pressure is elevated at 40-50mmHg. Aortic Valve There is mild aortic sclerosis.;. No hemodynamically significant valvular aortic stenosis. Mild aorti c regurgitation. Pulmonic Valve The pulmonic valve is not well seen, but is grossly normal. There is no pulmonic valvular stenosis. M ild pulmonic valvular regurgitation. Great Vessels The aortic root is normal size. Pericardium/Pleura There is no pericardial effusion. Interpretation Summary The study was technically difficult with many images being suboptimal in quality. Regional wall motion abnormalities cannot be excluded due to limited visualization. There is mild to moderate global hypokinesis of the left ventricle. Left ventricular systolic function is mildly reduced. Ejection Fraction = 45-50%. The right ventricle is moderately dilated. The right ventricular systolic function is moderately reduced. The left atrium is moderately dilated. The right atrium is moderate to severely dilated. There is mild mitral regurgitation. There is severe tricuspid regurgitation. Right ventricular systolic pressure is elevated at 40-50mmHg. There is mild aortic sclerosis.; Mild aortic regurgitation. There is no pericardial effusion. MD Rodriguez *Wolf 05/30/2018 01:48 PM
--- NOTE | 2018-05-30 18:06 | CONSULT ---
Consult - text type - Consultation Consultation Note: Renal Consult for MINGO on CKD This is a 83 year old gentleman with hx of CKD (baseline Cr 1.6), Diastolic HF, HLD, DM, p-afib who presented with sob, leg edmea and elevated HR and found to have acute CHF with MINGO. Pt noted to have CKD at baseline. Denies any history of stones, but does have BPH. Denies any NSAID use. No recent contrast exposure. Making urine, no hematuria, dysuria. Leg edmea with mild improvement s /p Lasix. No CP. No N/V/D. PMhx: as above Allergies: NKDA Family Hx: NC Social Hx: No t/a/d ROS:as per HPI, all other pertinent ros negative Home Medications Medication Instructions Recorded Simvastatin [Zocor -] 20 mg PO HS 08/22/14 Gabapentin [Neurontin -] 100 mg PO HS 03/26/15 Carvedilol [Coreg -] 3.125 mg PO BID 10/03/15 Apixaban [Eliquis] 2.5 mg PO BID #0 10/05/15 Colchicine [Colcrys] 0.6 mg PO DAILY PRN #0 10/05/15 Magnesium Oxide [Mag-Ox -] 400 mg PO DAILY #30 tablet 09/21/16 Potassium Chloride [K-Dur -] 20 meq PO DAILY #30 tablet 09/21/16 Tamsulosin HCl [Flomax -] 0.4 mg PO BID@0830,2200 #60 cap 09/21/16 Torsemide [Demadex -] 40 mg PO DAILY #30 tablet 09/21/16 Vital Signs Temperature 98.6 F 05/30/18 16:22 Pulse Rate 69 05/30/18 16:22 Respiratory Rate 22 H 05/30/18 16:22 Blood Pressure 115/60 05/30/18 16:22 O2 Sat by Pulse Oximetry (%) 95 05/30/18 16:22 Intake & Output 05/27/18 05/28/18 05/29/18 05/30/18 23:59 23:59 23:59 23:59 Weight 78.018 kg NAD awake and alert neck supple, no JVD MMM irregular, no M/R Dec BS at lung bases soft NT, mild distension noted reducible inguinal hernia no bladder distension no focal neurological defects CBC, BMP 05/30/18 06:18 05/30/18 06:26 Current Medications Apixaban (Eliquis -) 2.5 mg PO BID [facility] Atorvastatin Calcium (Lipitor -) 10 mg PO HS [facility] Carvedilol (Coreg -) 3.125 mg PO BID [facility] Furosemide (Lasix Injection -) 40 mg IVPUSH BID@0600,1400 [facility] Gabapentin (Neurontin -) 100 mg PO HS [facility] Magnesium Oxide (Mag-Ox -) 400 mg PO DAILY [facility] Potassium Chloride (K-Dur -) 20 meq PO DAILY [facility] Tamsulosin HCl (Flomax -) 0.4 mg PO BID@0830,2200 [facility] 83 year old gentleman with hx of CKD (baseline Cr 1.6), Diastolic HF, HLD, DM, p-afib who presented with sob, leg edmea and elevated HR and found to have acute CHF with MINGO. #MINGO on CKD in setting of CHF exacerbation #Acute CHF #DM #BPH #Thrombocytopenia Will continue IV Lasix BID as per cardiology recommendations Check urine for FeUrea and UPCR Check renal and bladder US to access for obstruction or urinary retention continue Flomax would hold any DIXIE/ARB until pt is evolemic and on steady dose of diuretics Check Hgb A1C Trend Plt counts Thank you Will follow Clay Guerrero DO
[2018-05-30 18:43] VITALS: BMI 28.2
[2018-05-30] MEDS: TAMSULOSIN HCL 0.4 MG CAP PO SCH (23:01)
[2018-05-30] MEDS: ATORVASTATIN CA 10 MG TABLET (FP) PO SCH (23:01)
[2018-05-30] MEDS: GABAPENTIN 100 MG CAPSULE (FP) PO SCH (23:01)
[2018-05-30] MEDS: CARVEDILOL 3.125 MG TABLET (FP) PO SCH (23:01)
[2018-05-30] MEDS: APIXABAN 2.5 MG TABLET PO SCH (23:01)
--- NOTE | 2018-05-31 06:32 | PN ---
Progress Note, Physician Chief Complaint: in bed no new c/o feels a little better; the other daughter at bedside - Current Medication List Current Medications: Active Medications Apixaban (Eliquis -) 2.5 mg PO BID [facility] Last Admin: 05/30/18 23:01 Dose: 2.5 mg Atorvastatin Calcium (Lipitor -) 10 mg PO HS [facility] Last Admin: 05/30/18 23:01 Dose: 10 mg Carvedilol (Coreg -) 3.125 mg PO BID [facility] Last Admin: 05/30/18 23:01 Dose: 3.125 mg Furosemide (Lasix Injection -) 40 mg IVPUSH BID@0600,1400 [facility] Gabapentin (Neurontin -) 100 mg PO HS [facility] Last Admin: 05/30/18 23:01 Dose: 100 mg Magnesium Oxide (Mag-Ox -) 400 mg PO DAILY [facility] Potassium Chloride (K-Dur -) 20 meq PO DAILY [facility] Tamsulosin HCl (Flomax -) 0.4 mg PO BID@0830,2200 [facility] Last Admin: 05/30/18 23:01 Dose: 0.4 mg - Objective Vital Signs: Vital Signs Temperature 97.4 F L 05/31/18 02:00 Pulse Rate 66 05/31/18 06:00 Respiratory Rate 20 05/31/18 06:00 Blood Pressure 126/69 05/31/18 06:00 O2 Sat by Pulse Oximetry (%) 100 05/30/18 20:55 Constitutional: Yes: No Distress, Calm Eyes: Yes: Conjunctiva Clear HENT: Yes: Atraumatic Neck: Yes: Supple Cardiovascular: Yes: Regular Rate and Rhythm Respiratory: Yes: Diminished Gastrointestinal: Yes: Soft. No: Distention Genitourinary: No: CVA Tenderness - Left, CVA Tenderness - Right Musculoskeletal: No: Joint Stiffness, Joint Swelling Extremities: No: Cold, Cool Edema: Yes (better) Integumentary: No: Rash, Venous Stasis Changes Neurological: Yes: WNL, Alert, Oriented ...Motor Strength: WNL Psychiatric: Yes: WNL, Alert, Oriented. No: Agitated, Suicidal Ideation Labs: CBC, BMP 05/30/18 06:18 05/30/18 06:26 INR, PTT INR 1.89 (0.83-1.09) H 05/30/18 06:18 - ....Imaging Other: Report Reviewed Assessment/Plan 83 year old male with a PMH of CHF, CAD (s/p stent x2), Afib (on Eliquis), CKD, lower GIB, h/o pleural effusion, NIDDM, HLD, Pulmonary HTN, BPH and Gout presents with acute onset of shortness of breath not improved after he increased his Lasix dose from 40 mg BID to 60 mg BID. admit for CHF exac cardiology f/u; consults and test d/w pt and daughter at bedside low PLT noted; furhter w/u ordered; to f/u outpt with dr Harris f/u labs, CE; TELEMETRY FOR ARRYTHMIA d/w pt and daughter at bedside falls PFX d/w pt's PCP dr Harris
[2018-05-31] MEDS: FUROSEMIDE 40 MG/4 ML INJECTABLE VIAL IVPUSH SCH ×2 (06:53→14:37)
[2018-05-31 07:48] LABS: BASO % 0.7 % (0-2.0); EOS % 1.1 % (0-4.5); HEMOGLOBIN 12.4 GM/dL (11.7-16.9); LYMPH % 18.1 % (8-40); MCH 31.7 pg (25.7-33.7); MCHC 31.8 g/dl (32.0-35.9); MEAN CELL VOLUME 99.8 fl (80-96); MEAN PLT VOLUME 9.2 fl (7.5-11.1); MONO % 13.9 % (3.8-10.2); NEUT % 66.2 % (42.8-82.8); PLATELET COUNT 81 K/MM3 (134-434); RBC 3.91 M/mm3 (4.00-5.60); RDW 17.6 % (11.9-15.9); WHITE BLOOD COUNT 5.7 K/mm3 (4.0-10.0)
[2018-05-31 08:32] LABS: ALBUMIN 3.1 g/dl (3.4-5.0); ALK PHOS 176 U/L (45-117); ANION GAP 9 MMOL/L (8-16); BILIRUBIN,TOTAL 3.3 mg/dL (0.2-1); BLOOD UREA NITROGEN 48 mg/dL (7-18); CALCIUM 8.6 mg/dL (8.5-10.1); CHLORIDE 102 mmol/L (98-107); CO2 27 mmol/L (21-32); GLUCOSE,RANDOM 83 mg/dL (74-106); MAGNESIUM 1.7 mg/dL (1.8-2.4); PHOSPHOROUS 3.6 mg/dL (2.5-4.9); POTASSIUM 3.7 mmol/L (3.5-5.1); SGOT/AST 20 U/L (15-37); SGPT/ALT 21 U/L (13-61); SODIUM 138 mmol/L (136-145); TOT PROT 6.5 g/dl (6.4-8.2)
[2018-05-31] MEDS ORDERED: FUROSEMIDE 40 MG/4 ML INJECTABLE VIAL IVPUSH SCH (10:00)
--- NOTE | 2018-05-31 10:30 | PN ---
Progress Note (short form) - Note Progress Note: s: feeling better, less sob and le edema. no cp palps dizzy o: Vital Signs Period Temp Pulse Resp BP Sys/Rivera Pulse Ox Last 24 Hr 97.4 F-98.6 F 63-72 18-22 104-139/54-76 95-100 nad, no jvd irreg, s1s2 no mrg cta b/l, nl eff aaox3 1+le edema b/l, no c/c abd nt nd pos bs no jaundice diaphoresis Current Medications Generic Name Dose Route Start Last Admin Trade Name Freq PRN Reason Stop Dose Admin Apixaban 2.5 mg 05/30/18 22:00 05/30/18 23:01 Eliquis - PO 2.5 mg BID [facility] Administration Atorvastatin Calcium 10 mg 05/30/18 22:00 05/30/18 23:01 Lipitor - PO 10 mg HS [facility] Administration Carvedilol 3.125 mg 05/30/18 22:00 05/30/18 23:01 Coreg - PO 3.125 mg BID [facility] Administration Furosemide 40 mg 05/31/18 06:00 05/31/18 06:53 Lasix Injection - IVPUSH 40 mg BID@0600,1400 [facility] Administration Gabapentin 100 mg 05/30/18 22:00 05/30/18 23:01 Neurontin - PO 100 mg HS [facility] Administration Magnesium Oxide 400 mg 05/31/18 10:00 Mag-Ox - PO DAILY [facility] Potassium Chloride 20 meq 05/31/18 10:00 K-Dur - PO DAILY [facility] Tamsulosin HCl 0.4 mg 05/30/18 22:00 05/30/18 23:01 Flomax - PO 0.4 mg BID@0830,2200 [facility] Administration CBC, BMP 05/31/18 06:30 05/31/18 06:30 ecg: sr, new rbbb cxr: small left eff echo 05/2018: tds; mild dec lvef, rv mod dil and mod dec fcn, orin, mild mr, sev tr, mild ar, rvsp 40-50 echo 05/2017: nl lvef, mild conc lvh, nl rv, mild orin, mild ar, mod tr, mod phtn , ivc dilated Echo 07/2015: afib, nl lvef, mild conc lvh, nl rv, mod orin, mild mr, mod tr, sev phtn. Echo 03/2015: Nl LV/RV, mild orin, mild MR, mod-sev TR, mild-mod AR, mod phtn Mibi 08/2014: no ischemia, nl EF. tele: afib, rate ok a/p: 83 m hx htn, pafib,dm, hld, dchf, venous insuff, ckd (cr 1.6), cad s/p marion to [facility] 2005 at [facility], here with sob, le edema. acute diastolic CHF: -admitted 03/2015 for mild vol overload secondary to increased salt intake. after several days of iv lasix he felt better but still with significant left effusion so had thoracentesis showing exudative effusion. has been following with pulm as well. -here now with similar episode. vol status had been stable on torsemide 40 qd but after eating a lot of salty foods over holiday he now has some vol overload. -sxs improving, will continue to diurese with iv lasix 40 bid, daily cr/lytes/wt htn: -cont home meds pafib: Rate controlled on bb. Continue eliquis. hld: Continue statin. cad s/p remote pci: -no signs acs -Continue bb, statin. No asa as he is on ac. -ecg showing new rbbb and lvef mildly reduced compared to last year. no signs of acute acs but after chf resolved will send for mibi to see if any ischemic cause.
[2018-05-31] MEDS: MAGNESIUM OXIDE 400 MG TABLET (FP) PO SCH (10:32)
[2018-05-31] MEDS: APIXABAN 2.5 MG TABLET PO SCH ×2 (10:32→22:40)
[2018-05-31] MEDS: POTASSIUM CHLORIDE TABS 20 MEQ TABLET.ER (FP) PO SCH (10:32)
[2018-05-31] MEDS: CARVEDILOL 3.125 MG TABLET (FP) PO SCH ×2 (10:32→22:40)
[2018-05-31] MEDS: TAMSULOSIN HCL 0.4 MG CAP PO SCH ×2 (10:32→22:40)
--- NOTE | 2018-05-31 11:38 | PN ---
Progress Note (short form) - Note Progress Note: Renal follow up for MINGO Pt seen and examined at the bedside reports feeling better no cough sob improved making urine s/p US of kidney and bladder Vital Signs Temperature 97.6 F 05/31/18 10:29 Pulse Rate 64 05/31/18 10:29 Respiratory Rate 20 05/31/18 10:29 Blood Pressure 116/70 05/31/18 10:29 O2 Sat by Pulse Oximetry (%) 100 05/30/18 20:55 Intake & Output 05/28/18 05/29/18 05/30/18 05/31/18 23:59 23:59 23:59 23:59 Intake Total 480 Output Total 350 Balance 480 -350 Weight 79.379 kg 80.195 kg NAD awake and alert Dry MM irregular, no M/R Dec BS at lung bases, no rales soft NT, mild distension noted no bladder distension CBC, BMP 05/31/18 06:30 05/31/18 06:30 Laboratory Tests 05/30/18 05/31/18 06:26 06:30 BUN 50 H 48 H Creatinine 2.3 H 2.0 H Current Medications Apixaban (Eliquis -) 2.5 mg PO BID [facility] Last Admin: 05/31/18 10:32 Dose: 2.5 mg Atorvastatin Calcium (Lipitor -) 10 mg PO HS [facility] Last Admin: 05/30/18 23:01 Dose: 10 mg Carvedilol (Coreg -) 3.125 mg PO BID [facility] Last Admin: 05/31/18 10:32 Dose: 3.125 mg Finasteride (Proscar -) 5 mg PO DAILY [facility] Furosemide (Lasix Injection -) 40 mg IVPUSH BID@0600,1400 [facility] Last Admin: 05/31/18 06:53 Dose: 40 mg Gabapentin (Neurontin -) 100 mg PO HS [facility] Last Admin: 05/30/18 23:01 Dose: 100 mg Magnesium Oxide (Mag-Ox -) 400 mg PO DAILY [facility] Last Admin: 05/31/18 10:32 Dose: 400 mg Potassium Chloride (K-Dur -) 20 meq PO DAILY [facility] Last Admin: 05/31/18 10:32 Dose: 20 meq Tamsulosin HCl (Flomax -) 0.4 mg PO BID@0830,2200 [facility] Last Admin: 05/31/18 10:32 Dose: 0.4 mg 83 year old gentleman with hx of CKD (baseline Cr 1.6), Diastolic HF, HLD, DM, p-afib who presented with sob, leg edmea and elevated HR and found to have acute CHF with MINGO. #MINGO on CKD in setting of CHF exacerbation #Acute CHF #DM #BPH #Thrombocytopenia Urine studies show FeUrea of 37%, UCPR is not significant Renal US results pending (noted to have PVR of ~100cc) will start proscar in addition to flomax no need for catheter continue Lasix IV BID as per cardiology Trend renal function and electrolytes Clay Guerrero DO
[2018-05-31] MEDS: ATORVASTATIN CA 10 MG TABLET (FP) PO SCH (22:40)
[2018-05-31] MEDS: GABAPENTIN 100 MG CAPSULE (FP) PO SCH (22:40)
[2018-06-01] MEDS: FUROSEMIDE 40 MG/4 ML INJECTABLE VIAL IVPUSH SCH ×2 (06:08→15:11)
[2018-06-01 07:47] LABS: BASO % 0.5 % (0-2.0); EOS % 1.3 % (0-4.5); HEMATOCRIT 38.8 % (35.4-49); HEMOGLOBIN 12.4 GM/dL (11.7-16.9); LYMPH % 18.8 % (8-40); MCH 31.9 pg (25.7-33.7); MCHC 31.9 g/dl (32.0-35.9); MEAN PLT VOLUME 9.2 fl (7.5-11.1); MONO % 12.3 % (3.8-10.2); NEUT % 67.1 % (42.8-82.8); PLATELET COUNT 84 K/MM3 (134-434); RBC 3.88 M/mm3 (4.00-5.60); RDW 17.4 % (11.9-15.9); WHITE BLOOD COUNT 5.3 K/mm3 (4.0-10.0)
[2018-06-01 08:29] LABS: ALBUMIN 3.1 g/dl (3.4-5.0); ALK PHOS 202 U/L (45-117); ANION GAP 9 MMOL/L (8-16); BILIRUBIN,TOTAL 3.2 mg/dL (0.2-1); BLOOD UREA NITROGEN 43 mg/dL (7-18); CALCIUM 8.6 mg/dL (8.5-10.1); CHLORIDE 101 mmol/L (98-107); CO2 28 mmol/L (21-32); CREATININE 1.8 mg/dL (0.55-1.3); GLUCOSE,RANDOM 86 mg/dL (74-106); MAGNESIUM 1.8 mg/dL (1.8-2.4); PHOSPHOROUS 3.6 mg/dL (2.5-4.9); POTASSIUM 3.4 mmol/L (3.5-5.1); SGOT/AST 22 U/L (15-37); SGPT/ALT 24 U/L (13-61); SODIUM 138 mmol/L (136-145); TOT PROT 6.8 g/dl (6.4-8.2)
[2018-06-01] MEDS ORDERED: POLYETHYLENE GLYCOL 3350 119 GM BTL PO PRN (09:20)
--- NOTE | 2018-06-01 09:45 | PN ---
Progress Note (short form) - Note Progress Note: Renal follow up for MINGO Pt seen and examined at the bedside feels better reports some RODRIGEZ when he walks around making urine no cp, sob at rest Vital Signs Temperature 97.5 F L 06/01/18 06:00 Pulse Rate 59 L 06/01/18 06:00 Respiratory Rate 18 06/01/18 06:00 Blood Pressure 118/62 06/01/18 06:00 O2 Sat by Pulse Oximetry (%) 97 05/31/18 21:00 Intake & Output 05/29/18 05/30/18 05/31/18 06/01/18 23:59 23:59 23:59 23:59 Intake Total 480 260 270 Output Total 350 Balance 480 -90 270 Weight 79.379 kg 80.195 kg 79.288 kg NAD awake and alert Dry MM irregular, no M/R Dec BS at lung bases, no rales soft NT/ND no bladder distension CBC, BMP 06/01/18 06:30 06/01/18 06:30 Current Medications Apixaban (Eliquis -) 2.5 mg PO BID [facility] Last Admin: 05/31/18 22:40 Dose: 2.5 mg Atorvastatin Calcium (Lipitor -) 10 mg PO HS [facility] Last Admin: 05/31/18 22:40 Dose: 10 mg Carvedilol (Coreg -) 3.125 mg PO BID [facility] Last Admin: 05/31/18 22:40 Dose: 3.125 mg Finasteride (Proscar -) 5 mg PO DAILY [facility] Furosemide (Lasix Injection -) 40 mg IVPUSH BID@0600,1400 [facility] Last Admin: 06/01/18 06:08 Dose: 40 mg Gabapentin (Neurontin -) 100 mg PO HS [facility] Last Admin: 05/31/18 22:40 Dose: 100 mg Magnesium Oxide (Mag-Ox -) 400 mg PO DAILY [facility] Last Admin: 05/31/18 10:32 Dose: 400 mg Polyethylene Glycol (Miralax (For Daily Use) -) 17 gm PO DAILY PRN PRN Reason: CONSTIPATION Potassium Chloride (K-Dur -) 20 meq PO DAILY [facility] Last Admin: 05/31/18 10:32 Dose: 20 meq Tamsulosin HCl (Flomax -) 0.4 mg PO BID@0830,2200 [facility] Last Admin: 05/31/18 22:40 Dose: 0.4 mg 83 year old gentleman with hx of CKD (baseline Cr 1.6), Diastolic HF, HLD, DM, p-afib who presented with sob, leg edmea and elevated HR and found to have acute CHF with MINGO. #MINGO on CKD in setting of CHF exacerbation #Acute CHF #DM #BPH #Thrombocytopenia Renal function improving with IV diuresis Urine studies show FeUrea of 37%, UCPR is not significant US showed no obstruction Continue proscar and flomax for BPH continue Lasix IV BID as per cardiology Trend renal function and electrolytes daily Clay Guerrero DO
[2018-06-01] MEDS: TAMSULOSIN HCL 0.4 MG CAP PO SCH ×2 (10:02→21:25)
[2018-06-01] MEDS: CARVEDILOL 3.125 MG TABLET (FP) PO SCH ×2 (10:02→21:25)
[2018-06-01] MEDS: FINASTERIDE 5 MG TABLET (FP) PO SCH (10:02)
[2018-06-01] MEDS: MAGNESIUM OXIDE 400 MG TABLET (FP) PO SCH (10:02)
[2018-06-01] MEDS: APIXABAN 2.5 MG TABLET PO SCH ×2 (10:02→21:25)
[2018-06-01] MEDS: POTASSIUM CHLORIDE TABS 20 MEQ TABLET.ER (FP) PO SCH (10:02)
--- NOTE | 2018-06-01 10:45 | PN ---
Progress Note (short form) - Note Progress Note: s: feeling better, less sob and le edema. no cp palps dizzy o: Vital Signs Period Temp Pulse Resp BP Sys/Rivera Pulse Ox Last 24 Hr 97.5 F-97.8 F 59-78 18-20 118-127/58-74 97 nad, no jvd irreg, s1s2 no mrg cta b/l, nl eff aaox3 trace le edema b/l, no c/c abd nt nd pos bs no jaundice diaphoresis Current Medications Generic Name Dose Route Start Last Admin Trade Name Freq PRN Reason Stop Dose Admin Apixaban 2.5 mg 05/30/18 22:00 06/01/18 10:02 Eliquis - PO 2.5 mg BID [facility] Administration Atorvastatin Calcium 10 mg 05/30/18 22:00 05/31/18 22:40 Lipitor - PO 10 mg HS [facility] Administration Carvedilol 3.125 mg 05/30/18 22:00 06/01/18 10:02 Coreg - PO 3.125 mg BID [facility] Administration Finasteride 5 mg 06/01/18 10:00 06/01/18 10:02 Proscar - PO 5 mg DAILY [facility] Administration Furosemide 40 mg 05/31/18 06:00 06/01/18 06:08 Lasix Injection - IVPUSH 40 mg BID@0600,1400 [facility] Administration Gabapentin 100 mg 05/30/18 22:00 05/31/18 22:40 Neurontin - PO 100 mg HS [facility] Administration Magnesium Oxide 400 mg 05/31/18 10:00 06/01/18 10:02 Mag-Ox - PO 400 mg DAILY [facility] Administration Polyethylene Glycol 17 gm 06/01/18 09:20 Miralax (For Daily Use) - PO DAILY PRN CONSTIPATION Potassium Chloride 20 meq 05/31/18 10:00 06/01/18 10:02 K-Dur - PO 20 meq DAILY [facility] Administration Tamsulosin HCl 0.4 mg 05/30/18 22:00 06/01/18 10:02 Flomax - PO 0.4 mg BID@0830,2200 [facility] Administration ecg: sr, new rbbb cxr: small left eff echo 05/2018: tds; mild dec lvef, rv mod dil and mod dec fcn, orin, mild mr, sev tr, mild ar, rvsp 40-50 echo 05/2017: nl lvef, mild conc lvh, nl rv, mild orin, mild ar, mod tr, mod phtn , ivc dilated Echo 07/2015: afib, nl lvef, mild conc lvh, nl rv, mod orin, mild mr, mod tr, sev phtn. Echo 03/2015: Nl LV/RV, mild orin, mild MR, mod-sev TR, mild-mod AR, mod phtn Mibi 08/2014: no ischemia, nl EF. tele: afib, rate ok a/p: 83 m hx htn, pafib,dm, hld, dchf, venous insuff, ckd (cr 1.6), cad s/p marion to [facility] 2005 at [facility], here with sob, le edema. acute diastolic CHF: -admitted 03/2015 for mild vol overload secondary to increased salt intake. after several days of iv lasix he felt better but still with significant left effusion so had thoracentesis showing exudative effusion. has been following with pulm as well. -here now with similar episode. vol status had been stable on torsemide 40 qd but after eating a lot of salty foods over holiday he now has some vol overload. -sxs improving, will continue to diurese with iv lasix 40 bid, daily cr/lytes/wt htn: -cont home meds pafib: Rate controlled on bb. Continue eliquis. hld: Continue statin. cad s/p remote pci: -no signs acs -Continue bb, statin. No asa as he is on ac. -ecg showing new rbbb and lvef mildly reduced compared to last year. no signs of acute acs, after chf resolved will check mibi to see if any ischemic cause, can be done as outpt.
--- NOTE | 2018-06-01 12:10 | PN ---
Progress Note, Physician Chief Complaint: in bed NAD comfortable feels better creatinine improved with diureses from 2.5 to 1.8; renal US negative; TBili 3.3 noted; low PLT - r/o liver cirrhosis; will check liver US and D Bili; GI eval - Current Medication List Current Medications: Active Medications Apixaban (Eliquis -) 2.5 mg PO BID [facility] Last Admin: 06/01/18 10:02 Dose: 2.5 mg Atorvastatin Calcium (Lipitor -) 10 mg PO [facility] Last Admin: 05/31/18 22:40 Dose: 10 mg Carvedilol (Coreg -) 3.125 mg PO BID [facility] Last Admin: 06/01/18 10:02 Dose: 3.125 mg Finasteride (Proscar -) 5 mg PO DAILY [facility] Last Admin: 06/01/18 10:02 Dose: 5 mg Furosemide (Lasix Injection -) 40 mg IVPUSH BID@0600,1400 [facility] Last Admin: 06/01/18 06:08 Dose: 40 mg Gabapentin (Neurontin -) 100 mg PO [facility] Last Admin: 05/31/18 22:40 Dose: 100 mg Magnesium Oxide (Mag-Ox -) 400 mg PO DAILY [facility] Last Admin: 06/01/18 10:02 Dose: 400 mg Polyethylene Glycol (Miralax (For Daily Use) -) 17 gm PO DAILY PRN PRN Reason: CONSTIPATION Potassium Chloride (K-Dur -) 20 meq PO DAILY [facility] Last Admin: 06/01/18 10:02 Dose: 20 meq Tamsulosin HCl (Flomax -) 0.4 mg PO BID@0830,2200 [facility] Last Admin: 06/01/18 10:02 Dose: 0.4 mg - Objective Vital Signs: Vital Signs Temperature 97.5 F L 06/01/18 06:00 Pulse Rate 59 L 06/01/18 06:00 Respiratory Rate 18 06/01/18 06:00 Blood Pressure 118/62 06/01/18 06:00 O2 Sat by Pulse Oximetry (%) 97 05/31/18 21:00 Constitutional: Yes: No Distress, Calm Eyes: Yes: Conjunctiva Clear HENT: Yes: Atraumatic Neck: Yes: Supple Cardiovascular: Yes: Regular Rate and Rhythm Respiratory: Yes: Diminished Gastrointestinal: Yes: Soft. No: Distention Genitourinary: No: CVA Tenderness - Left, CVA Tenderness - Right Musculoskeletal: No: Joint Stiffness, Joint Swelling Extremities: No: Cold, Cool, Cyanosis Edema: No Integumentary: No: Bruising, Rash, Venous Stasis Changes Neurological: Yes: WNL, Alert, Oriented ...Motor Strength: WNL Psychiatric: Yes: WNL, Alert, Oriented. No: Agitated, Suicidal Ideation Labs: CBC, BMP 06/01/18 06:30 06/01/18 06:30 INR, PTT INR 1.89 (0.83-1.09) H 05/30/18 06:18 - ....Imaging Other: Report Reviewed Assessment/Plan 83 year old male with a PMH of CHF, CAD (s/p stent x2), Afib (on Eliquis), CKD, lower GIB, h/o pleural effusion, NIDDM, HLD, Pulmonary HTN, BPH and Gout presents with acute onset of shortness of breath not improved after he increased his Lasix dose from 40 mg BID to 60 mg BID. ASHD CHF exac; cardiology f/u; CRF: renal f/u low PLT high T Bili: check DBili; liver US, GI eval f/u labs, CE; TELEMETRY FOR ARRYTHMIA d/w pt and daughter at bedside falls PFX
[2018-06-01 12:57] LABS: BILIRUBIN,TOTAL 3.3 mg/dL (0.2-1)
--- NOTE | 2018-06-01 13:14 | CON.GI ---
Consult Consult Specialty:: GI: Referred by:: Dr. Milli Sarmiento Reason for Consultation:: Abnormal LFTs - History of Present Illness Chief Complaint: Shortness of breath History of Present Illness: 83M admitted for evaluation of SOB. Has a history of CHF and has had a high in sodium diet through the recent holidays. He has been evaluated by cardiology and is being diuresed. He is followed by Dr. Clifford and has had prior colonoscoies with him had a colonoscopy, the last being within the last 5 years when 2 polyps were removed. He also has had an EGD 2 years ago which revealed an ulcer. He denies recent weight loss, loss of appetite, early satiety or dysphagia. Asked to evaluate elevated bilirubin. His ALK phos and bilirubin have been elevated from at least 2015. 10/03 US revealed normal sized, homogeneous liver and minimal thickening of the gallbladder wall without stones. - History Source History Provided By: Patient - Past Medical History Cardio/Vascular: Yes: AFIB (on AC), CAD, CHF, HTN, Hyperlipdemia, Pulmonary Hypertension, Other (tricuspid regurgitation and aortic sclerosis, coronary stenting > 10 years ago). No: Aneurysm, Aortic Insufficiency, Aortic Stenosis Pulmonary: Yes: Other (left pleural effusion requiring thoracentesis 04/03) Gastrointestinal: Yes: Constipation, Peptic Ulcer Disease, Other (colon polyps) Renal/: Yes: Renal Inusuff (new finding today), BPH Musculoskeletal: Yes: Chronic low back pain Rheumatology: Yes: Gout ENT: Yes: Allergic Rhinitis Endocrine: Yes: Diabetes Mellitus - Past Surgical History Past Surgical History: Yes: Colonoscopy, Tonsillectomy, Upper Endoscopy - Alcohol/Substance Use Hx Alcohol Use: No History of Substance Use: reports: None - Smoking History Smoking history: Never smoked Have you smoked in the past 12 months: No Aproximately how many cigarettes per day: 0 If you are a former smoker, when did you quit?: 1979 - Social History Usual Living Arrangement: With Spouse ADL: Independent 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 History of Recent Travel: No Home Medications - Allergies Allergies/Adverse Reactions: Allergies Allergy/AdvReac Type Severity Reaction Status Date / Time No Known Allergies Allergy Verified 05/30/18 06:16 - Home Medications Home Medications: Ambulatory Orders Simvastatin [Zocor -] 20 mg PO HS 08/22/14 Gabapentin [Neurontin -] 100 mg PO HS 03/26/15 Carvedilol [Coreg -] 3.125 mg PO BID 10/03/15 Apixaban [Eliquis] 2.5 mg PO BID #0 10/05/15 Colchicine [Colcrys] 0.6 mg PO DAILY PRN #0 10/05/15 Magnesium Oxide [Mag-Ox -] 400 mg PO DAILY #30 tablet 09/21/16 Potassium Chloride [K-Dur -] 20 meq PO DAILY #30 tablet 09/21/16 Tamsulosin HCl [Flomax -] 0.4 mg PO BID@0830,2200 #60 cap 09/21/16 Torsemide [Demadex -] 40 mg PO DAILY #30 tablet 09/21/16 Family Disease History - Family Disease History Family Disease History: Heart Disease: Father ( 87), Mother ( 89), Brother ( 41), Sister ( 93) Review of Systems - Review of Systems Constitutional: denies: Fever, Unintentional Wgt. Loss Cardiovascular: denies: Chest Pain Respiratory: reports: SOB Gastrointestinal: denies: Abdominal Pain, Bloating, Constipation, Diarrhea, Melena, Nausea, Rectal Bleeding, Vomiting, Vomiting Blood Physical Exam-GI Vital Signs: Vital Signs Temperature 97.5 F L 06/01/18 06:00 Pulse Rate 59 L 06/01/18 06:00 Respiratory Rate 18 06/01/18 06:00 Blood Pressure 118/62 06/01/18 06:00 O2 Sat by Pulse Oximetry (%) 97 05/31/18 21:00 Constitutional: Yes: Calm Eyes: No: Sclera Icterus Cardiovascular: Yes: Bradycardia Respiratory: Yes: Diminished (at bases b/l) Gastrointestinal Inspection: No: Distention, Scars ...Auscultate: Yes: Normoactive Bowel Sounds ...Palpate: No: Hepatomegaly, Splenomegaly, Tenderness ...Percussion: No: Tympanitic Edema: Yes Edema: LLE: 2+, RLE: 2+ Neurological: Yes: Alert Labs: CBC, BMP 06/01/18 06:30 06/01/18 06:30 INR, PTT INR 1.89 (0.83-1.09) H 05/30/18 06:18 Hepatic Panel Total Bilirubin 3.3 mg/dL (0.2-1) H 06/01/18 06:30 AST 22 U/L (15-37) 06/01/18 06:30 ALT 24 U/L (13-61) 06/01/18 06:30 Alkaline Phosphatase 202 U/L (45-117) H 06/01/18 06:30 Albumin 3.1 g/dl (3.4-5.0) L 06/01/18 06:30 Problem List - Problems (1) Abnormal LFTs Assessment/Plan: Chronic elevation of ALP and bilirubin. Suspect component of liver dysfunction secondary to passive congestion Asymptomatic Abd US ordered Screening hepatitis serologies Dr. Clifford resumes care 06/02 Code(s): R94.5 - ABNORMAL RESULTS OF LIVER FUNCTION STUDIES
[2018-06-01 18:54] LABS: BILIRUBIN,DIRECT 1.3 mg/dL (0.0-0.2)
--- NOTE | 2018-06-01 19:34 | CONSULT ---
Consult Consult Specialty:: Heme Referred by:: Blanche Sarmiento Reason for Consultation:: Thrombocytopenia - History of Present Illness Chief Complaint: SOB History of Present Illness: 83M with Afib on apixaban, CAD, dCHF, HTN, CKD, pulmonary hypertension admitted with shortness of breath and LE edema. Being treated for decompensated CHF. Hematology consulted for platelet count in the 80s. Has had mild thrombocytopenia since at least 2014 (120s-160s). Also with slight normocytic anemia of similar duration, now Hgb 12.4 and macrocytic. WBC normal. INR is 1.9 and has been elevated for years (PT should not be significantly on Apixaban.). Albumin decreased, ALP and TBili increased (chronically). B12 elevated. TSH normal. No obvious culprit meds. Pt denies bleeding including hematochezia, melena, gum bleeding and epistaxis. - Past Medical History Cardio/Vascular: Yes: AFIB (on AC), CAD, CHF, HTN, Hyperlipdemia, Pulmonary Hypertension, Other (tricuspid regurgitation and aortic sclerosis, coronary stenting > 10 years ago). No: Aneurysm, Aortic Insufficiency, Aortic Stenosis Pulmonary: Yes: Other (left pleural effusion requiring thoracentesis 04/03) Gastrointestinal: Yes: Constipation, Peptic Ulcer Disease, Other (colon polyps) Renal/: Yes: Renal Inusuff (new finding today), BPH Musculoskeletal: Yes: Chronic low back pain Rheumatology: Yes: Gout ENT: Yes: Allergic Rhinitis Endocrine: Yes: Diabetes Mellitus - Past Surgical History Past Surgical History: Yes: Colonoscopy, Tonsillectomy, Upper Endoscopy - Alcohol/Substance Use Hx Alcohol Use: No History of Substance Use: reports: None - Smoking History Smoking history: Never smoked Have you smoked in the past 12 months: No Aproximately how many cigarettes per day: 0 If you are a former smoker, when did you quit?: 1979 - Social History Usual Living Arrangement: With Spouse ADL: Independent 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 History of Recent Travel: No Home Medications - Allergies Allergies/Adverse Reactions: Allergies Allergy/AdvReac Type Severity Reaction Status Date / Time No Known Allergies Allergy Verified 05/30/18 06:16 - Home Medications Home Medications: Ambulatory Orders Simvastatin [Zocor -] 20 mg PO HS 08/22/14 Gabapentin [Neurontin -] 100 mg PO HS 03/26/15 Carvedilol [Coreg -] 3.125 mg PO BID 10/03/15 Apixaban [Eliquis] 2.5 mg PO BID #0 10/05/15 Colchicine [Colcrys] 0.6 mg PO DAILY PRN #0 10/05/15 Magnesium Oxide [Mag-Ox -] 400 mg PO DAILY #30 tablet 09/21/16 Potassium Chloride [K-Dur -] 20 meq PO DAILY #30 tablet 09/21/16 Tamsulosin HCl [Flomax -] 0.4 mg PO BID@0830,2200 #60 cap 09/21/16 Torsemide [Demadex -] 40 mg PO DAILY #30 tablet 09/21/16 Family Disease History - Family Disease History Family Disease History: Heart Disease: Father ( 87), Mother ( 89), Brother ( 41), Sister ( 93) Review of Systems - Review of Systems Constitutional: reports: No Symptoms Cardiovascular: reports: Edema, Shortness of Breath Respiratory: reports: SOB, SOB on Exertion Gastrointestinal: reports: No Symptoms Hematology/Lymphatic: reports: No Symptoms Physical Exam Vital Signs: Vital Signs Temperature 97.8 F 06/01/18 18:00 Pulse Rate 68 06/01/18 18:00 Respiratory Rate 20 06/01/18 18:00 Blood Pressure 120/50 L 06/01/18 18:00 O2 Sat by Pulse Oximetry (%) 98 06/01/18 09:00 Constitutional: Yes: Well Nourished, No Distress, Calm Cardiovascular: Yes: WNL, Regular Rate and Rhythm Respiratory: Yes: Regular, CTA Bilaterally Gastrointestinal: Yes: WNL, Soft Edema: Yes Edema: LLE: 3+, RLE: 3+ Integumentary: Yes: WNL Labs: CBC, BMP 06/01/18 06:30 06/01/18 06:30 Assessment/Plan 83M with Afib on apixaban, CAD, dCHF, HTN, CKD, pulmonary hypertension admitted with ADHF. Found to have worsening of chronic thrombocytopenia. Peripheral smear with anisopoikilocytosis with some elliptocytes, only one small plt clump noted, no immature forms or obvious dysplasia. -Please check fibrinogen, PTT, folate, iron studies, direct bili, H. pylori stool ag -Would obtain sono of abdomen to evaluate for liver disease and splenomegaly given diastolic heart failure, macrocytosis, abnormal INR and liver tests
[2018-06-01] MEDS: GABAPENTIN 100 MG CAPSULE (FP) PO SCH (21:25)
[2018-06-01] MEDS: ATORVASTATIN CA 10 MG TABLET (FP) PO SCH (21:25)
--- NOTE | 2018-06-02 06:41 | DS ---
Physical Examination Vital Signs: Vital Signs Temperature 97.6 F 06/02/18 06:00 Pulse Rate 63 06/02/18 06:00 Respiratory Rate 20 06/02/18 06:00 Blood Pressure 117/60 06/02/18 06:00 O2 Sat by Pulse Oximetry (%) 97 06/01/18 21:00 Discharge Summary Reason For Visit: CHF Current Active Problems Abnormal LFTs (Acute) CHF exacerbation (Acute) Lightheaded (Acute) Shortness of breath (Acute) Condition: Stable - Instructions Referrals: Gila Harris MD [Primary Care Provider] - - Home Medications Comprehensive Discharge Medication List: Ambulatory Orders Simvastatin [Zocor -] 20 mg PO HS 08/22/14 Gabapentin [Neurontin -] 100 mg PO HS 03/26/15 Carvedilol [Coreg -] 3.125 mg PO BID 10/03/15 Apixaban [Eliquis] 2.5 mg PO BID #0 10/05/15 Colchicine [Colcrys] 0.6 mg PO DAILY PRN #0 10/05/15 Magnesium Oxide [Mag-Ox -] 400 mg PO DAILY #30 tablet 09/21/16 Potassium Chloride [K-Dur -] 20 meq PO DAILY #30 tablet 09/21/16 Tamsulosin HCl [Flomax -] 0.4 mg PO BID@0830,2200 #60 cap 09/21/16 Torsemide [Demadex -] 40 mg PO DAILY #30 tablet 09/21/16
[2018-06-02 07:03] LABS: BASO % 0.6 % (0-2.0); EOS % 1.2 % (0-4.5); HEMATOCRIT 38.2 % (35.4-49); HEMOGLOBIN 12.2 GM/dL (11.7-16.9); LYMPH % 18.6 % (8-40); MCH 31.8 pg (25.7-33.7); MCHC 31.8 g/dl (32.0-35.9); MEAN CELL VOLUME 99.8 fl (80-96); MEAN PLT VOLUME 9.1 fl (7.5-11.1); MONO % 12.4 % (3.8-10.2); NEUT % 67.2 % (42.8-82.8); PLATELET COUNT 84 K/MM3 (134-434); RBC 3.83 M/mm3 (4.00-5.60); RDW 17.6 % (11.9-15.9); WHITE BLOOD COUNT 5.2 K/mm3 (4.0-10.0)
[2018-06-02 07:50] LABS: BILIRUBIN,DIRECT 1.2 mg/dL (0.0-0.2)
[2018-06-02 08:37] LABS: ALBUMIN 3.2 g/dl (3.4-5.0); ALK PHOS 204 U/L (45-117); ANION GAP 10 MMOL/L (8-16); BILIRUBIN,TOTAL 3.4 mg/dL (0.2-1); BLOOD UREA NITROGEN 38 mg/dL (7-18); CALCIUM 8.3 mg/dL (8.5-10.1); CHLORIDE 103 mmol/L (98-107); CO2 27 mmol/L (21-32); CREATININE 1.7 mg/dL (0.55-1.3); GLUCOSE,RANDOM 80 mg/dL (74-106); POTASSIUM 3.4 mmol/L (3.5-5.1); SGOT/AST 24 U/L (15-37); SGPT/ALT 23 U/L (13-61); SODIUM 140 mmol/L (136-145); TOT PROT 6.7 g/dl (6.4-8.2)
--- NOTE | 2018-06-02 10:56 | PN ---
Progress Note, Physician Chief Complaint: feels better; liver US small ascites, R pleural eff; CXR L effusion; will check chest CT pt to continue IV lasix for now; will need outpt f/u cardiology and pulmonary; also will need outpt f/u GI, heme and renal as advised - Current Medication List Current Medications: Active Medications Apixaban (Eliquis -) 2.5 mg PO BID [facility] Last Admin: 06/01/18 21:25 Dose: 2.5 mg Atorvastatin Calcium (Lipitor -) 10 mg PO HS [facility] Last Admin: 06/01/18 21:25 Dose: 10 mg Carvedilol (Coreg -) 3.125 mg PO BID [facility] Last Admin: 06/01/18 21:25 Dose: 3.125 mg Finasteride (Proscar -) 5 mg PO DAILY [facility] Last Admin: 06/01/18 10:02 Dose: 5 mg Furosemide (Lasix Injection -) 40 mg IVPUSH BID@0600,1400 [facility] Last Admin: 06/01/18 15:11 Dose: 40 mg Gabapentin (Neurontin -) 100 mg PO HS [facility] Last Admin: 06/01/18 21:25 Dose: 100 mg Magnesium Oxide (Mag-Ox -) 400 mg PO DAILY [facility] Last Admin: 06/01/18 10:02 Dose: 400 mg Polyethylene Glycol (Miralax (For Daily Use) -) 17 gm PO DAILY PRN PRN Reason: CONSTIPATION Potassium Chloride (K-Dur -) 20 meq PO DAILY [facility] Last Admin: 06/01/18 10:02 Dose: 20 meq Tamsulosin HCl (Flomax -) 0.4 mg PO BID@0830,2200 [facility] Last Admin: 06/01/18 21:25 Dose: 0.4 mg - Objective Vital Signs: Vital Signs Temperature 97.6 F 06/02/18 06:00 Pulse Rate 70 06/02/18 10:00 Respiratory Rate 18 06/02/18 10:00 Blood Pressure 135/60 06/02/18 10:00 O2 Sat by Pulse Oximetry (%) 98 06/02/18 09:00 Constitutional: Yes: No Distress, Calm Eyes: Yes: Conjunctiva Clear HENT: Yes: Atraumatic Neck: Yes: Supple Cardiovascular: Yes: Regular Rate and Rhythm Respiratory: Yes: Diminished Gastrointestinal: Yes: Soft. No: Tenderness Genitourinary: No: CVA Tenderness - Left, CVA Tenderness - Right Musculoskeletal: No: Joint Stiffness, Joint Swelling Extremities: No: Cold, Cool Edema: No Integumentary: No: Rash, Venous Stasis Changes Neurological: Yes: WNL, Alert, Oriented ...Motor Strength: WNL Psychiatric: Yes: WNL, Alert, Oriented. No: Agitated, Suicidal Ideation Labs: CBC, BMP 06/02/18 05:30 06/02/18 05:30 INR, PTT INR 1.89 (0.83-1.09) H 05/30/18 06:18 Fibrinogen 288.0 mg/dL (238-498) 06/02/18 05:30 - ....Imaging Other: Report Reviewed Assessment/Plan 83 year old male with a PMH of CHF, CAD (s/p stent x2), Afib (on Eliquis), CKD, lower GIB, h/o pleural effusion, NIDDM, HLD, Pulmonary HTN, BPH and Gout presents with acute onset of shortness of breath not improved after he increased his Lasix dose from 40 mg BID to 60 mg BID. ASHD CHF exac; cardiology f/u; iv lasix to diurese CRF: renal f/u low PLT high T Bili: check DBili; liver US, GI f/u pleural effusions: chest CT: pulm eval dr Anderson (can be done outpt if chest CT no acute changes) heme f/u for low PLT f/u labs, falls PFX d/w pt and PCP dr Harris
[2018-06-02] MEDS ORDERED: POTASSIUM CHLORIDE TABS 10 MEQ TABLET.ER (FP) PO ONE (11:45)
[2018-06-02] MEDS: TAMSULOSIN HCL 0.4 MG CAP PO SCH ×2 (11:47→21:55)
[2018-06-02] MEDS: FUROSEMIDE 40 MG/4 ML INJECTABLE VIAL IVPUSH SCH ×2 (11:47→17:23)
[2018-06-02] MEDS: POTASSIUM CHLORIDE TABS 20 MEQ TABLET.ER (FP) PO SCH (11:48)
[2018-06-02] MEDS: CARVEDILOL 3.125 MG TABLET (FP) PO SCH ×2 (11:48→21:55)
[2018-06-02] MEDS: MAGNESIUM OXIDE 400 MG TABLET (FP) PO SCH (11:48)
[2018-06-02] MEDS: APIXABAN 2.5 MG TABLET PO SCH ×2 (11:49→21:55)
[2018-06-02] MEDS: FINASTERIDE 5 MG TABLET (FP) PO SCH (11:50)
--- NOTE | 2018-06-02 12:10 | PN ---
Progress Note, Physician Chief Complaint: sob History of Present Illness: sob much improved--walking to bathroom and back to bed no orthopnea leg swelling much improved no cp, palpit wants to go home and states he can see dr wilson as outpt within next couple days no cigs - Current Medication List Current Medications: Active Medications Apixaban (Eliquis -) 2.5 mg PO BID [facility] Last Admin: 06/02/18 11:49 Dose: 2.5 mg Atorvastatin Calcium (Lipitor -) [address] [facility] Last Admin: 06/01/18 21:25 Dose: 10 mg Carvedilol (Coreg -) 3.125 mg PO BID [facility] Last Admin: 06/02/18 11:48 Dose: 3.125 mg Finasteride (Proscar -) 5 mg PO DAILY [facility] Last Admin: 06/02/18 11:50 Dose: 5 mg Furosemide (Lasix Injection -) 40 mg IVPUSH BID@0600,1400 [facility] Last Admin: 06/02/18 11:47 Dose: 40 mg Gabapentin (Neurontin -) [address] [facility] Last Admin: 06/01/18 21:25 Dose: 100 mg Magnesium Oxide (Mag-Ox -) 400 mg PO DAILY [facility] Last Admin: 06/02/18 11:48 Dose: 400 mg Polyethylene Glycol (Miralax (For Daily Use) -) 17 gm PO DAILY PRN PRN Reason: CONSTIPATION Potassium Chloride (K-Dur -) 20 meq PO DAILY [facility] Last Admin: 06/02/18 11:48 Dose: 20 meq Tamsulosin HCl (Flomax -) 0.4 mg PO BID@0830,2200 [facility] Last Admin: 06/02/18 11:47 Dose: 0.4 mg - Objective Vital Signs: Vital Signs Temperature 97.6 F 06/02/18 06:00 Pulse Rate 70 06/02/18 10:00 Respiratory Rate 18 06/02/18 10:00 Blood Pressure 135/60 06/02/18 10:00 O2 Sat by Pulse Oximetry (%) 98 06/02/18 09:00 Constitutional: Yes: No Distress, Calm Eyes: No: Sclera Icterus HENT: No: Nasal Congestion Cardiovascular: Yes: Pulse Irregular, JVD (++), S1, S2, Other (PMI non diplaced) . No: Gallop, Murmur Respiratory: Yes: CTA Bilaterally. No: Accessory Muscle Use, Rales, Wheezes Gastrointestinal: Yes: Normal Bowel Sounds, Soft. No: Tenderness Musculoskeletal: Yes: Other (No kyphosis) Extremities: No: Cold Edema: Yes (1+ ankles) Integumentary: No: Jaundice Neurological: Yes: Alert, Oriented (x3) Psychiatric: No: Agitated Labs: CBC, BMP 06/02/18 05:30 06/02/18 05:30 INR, PTT INR 1.89 (0.83-1.09) H 05/30/18 06:18 Fibrinogen 288.0 mg/dL (238-498) 06/02/18 05:30 Assessment/Plan CXR: persistent small L effusion, overall improved L base aeration vs prior 2016 echo 05/2018: tds; mild dec lvef, rv mod dil and mod dec fcn, orin, mild mr, sev tr, mild ar, rvsp 40-50 echo 05/2017: nl lvef, mild conc lvh, nl rv, mild orin, mild ar, mod tr, mod phtn , ivc dilated Echo 07/2015: afib, nl lvef, mild conc lvh, nl rv, mod orin, mild mr, mod tr, sev phtn. Echo 03/2015: Nl LV/RV, mild orin, mild MR, mod-sev TR, mild-mod AR, mod phtn Mibi 08/2014: no ischemia, nl EF. tele: afib, HR good a/p: 83 m hx htn, pafib,dm, hld, dchf, venous insuff, ckd (cr 1.6), cad s/p marion to r[facility] 2005 at [facility], here with sob, le edema. acute diastolic CHF: -admitted 2014 for mild vol overload secondary to increased salt intake. after several days of iv lasix he felt better but still with significant left effusion so had thoracentesis. -here now with similar episode in setting of diet indiscretion (previously vol status had been stable on torsemide 40 qd as outpt) -sxs improving, still signif JVD ? very volume up vs primarily related to severe TR -given he is very stable, and renal fxn improved, ok for pt to go home (per his strong preference) on incr torsemide (80 qd). verbalizes understanding and agreement to see dr wilson this week for labs and dose titration (plan d/w'd dr wilson as well) MINGO on CKD: -prior creat's last admit here 1.6-1.8 -initially worse here, likely cardiorenal--improving with diuresis -monitor labs trend htn: -well controlled -cont home meds pafib: -Rate controlled on bb. -Continue eliquis for AC hld: -Continue statin. cad s/p remote pci: -no signs acs -Continue bb, statin. No asa as he is on ac. -ecg showing new rbbb and lvef mildly reduced compared to last year. no signs of acute acs, after chf resolved will check mibi to see if any ischemic cause, can be done as outpt.
--- NOTE | 2018-06-02 12:19 | PN ---
Progress Note (short form) - Note Progress Note: Renal follow up for MINGO Pt seen and examined at the bedside feels better, still have very mild RODRIGEZ on exertion no cp, sob at rest, no cough making urine Vital Signs Temperature 97.6 F 06/02/18 06:00 Pulse Rate 70 06/02/18 10:00 Respiratory Rate 18 06/02/18 10:00 Blood Pressure 135/60 06/02/18 10:00 O2 Sat by Pulse Oximetry (%) 98 06/02/18 09:00 Intake & Output 05/30/18 05/31/18 06/01/18 06/02/18 23:59 23:59 23:59 23:59 Intake Total 480 260 590 560 Output Total 350 Balance 480 -90 590 560 Weight 79.379 kg 80.195 kg 79.288 kg 79.469 kg NAD awake and alert Dry MM irregular, no M/R Dec BS at lung bases, no rales soft NT/ND no bladder distension CBC, BMP 06/02/18 05:30 06/02/18 05:30 Current Medications Apixaban (Eliquis -) 2.5 mg PO BID [facility] Last Admin: 06/02/18 11:49 Dose: 2.5 mg Atorvastatin Calcium (Lipitor -) 10 mg PO HS [facility] Last Admin: 06/01/18 21:25 Dose: 10 mg Carvedilol (Coreg -) 3.125 mg PO BID [facility] Last Admin: 06/02/18 11:48 Dose: 3.125 mg Finasteride (Proscar -) 5 mg PO DAILY [facility] Last Admin: 06/02/18 11:50 Dose: 5 mg Furosemide (Lasix Injection -) 40 mg IVPUSH BID@0600,1400 [facility] Last Admin: 06/02/18 11:47 Dose: 40 mg Gabapentin (Neurontin -) 100 mg PO HS [facility] Last Admin: 06/01/18 21:25 Dose: 100 mg Magnesium Oxide (Mag-Ox -) 400 mg PO DAILY [facility] Last Admin: 06/02/18 11:48 Dose: 400 mg Polyethylene Glycol (Miralax (For Daily Use) -) 17 gm PO DAILY PRN PRN Reason: CONSTIPATION Potassium Chloride (K-Dur -) 20 meq PO DAILY [facility] Last Admin: 06/02/18 11:48 Dose: 20 meq Tamsulosin HCl (Flomax -) 0.4 mg PO BID@0830,2200 [facility] Last Admin: 06/02/18 11:47 Dose: 0.4 mg 83 year old gentleman with hx of CKD (baseline Cr 1.6), Diastolic HF, HLD, DM, p-afib who presented with sob, leg edmea and elevated HR and found to have acute CHF with MINGO. #MINGO on CKD in setting of CHF exacerbation #Acute CHF #DM #BPH #Thrombocytopenia Renal function improving and pt is at near baseline clinically improved as well transition to oral diuretics when cardiology feels he is evolemic continue flomax and proscar for BPH Imaging studies of the lung as per PMD Clay Guerrero DO
--- NOTE | 2018-06-02 12:23 | PN ---
GI Progress Note Subjective: RADHA NOteL Mildly jaundiced. NO abdominal 0pain but feels constipated. Await sonogram reading - Objective Vital Signs: Vital Signs Temperature 97.6 F 06/02/18 06:00 Pulse Rate 70 06/02/18 10:00 Respiratory Rate 18 06/02/18 10:00 Blood Pressure 135/60 06/02/18 10:00 O2 Sat by Pulse Oximetry (%) 98 06/02/18 09:00 Laboratory Tests 08/22/14 03/26/15 10/03/15 21:00 10:20 10:53 Total Bilirubin 1.9 H 3.4 H 2.3 H 10/04/15 09/20/16 05/30/18 06:00 05:40 06:26 Total Bilirubin 3.0 H D 2.8 H 3.3 H 06/02/18 05:30 Total Bilirubin 3.4 H Constitutional: No Distress Eyes: Yes: Sclera Icterus Gastrointestinal Inspection: Yes: Distention ...Auscultate: Yes: Normoactive Bowel Sounds ...Palpate: Yes: Soft, Other (nontender) ...Percussion: Yes: Tympanitic Labs: CBC, BMP 06/02/18 05:30 06/02/18 05:30 INR, PTT INR 1.89 (0.83-1.09) H 05/30/18 06:18 Fibrinogen 288.0 mg/dL (238-498) 06/02/18 05:30 Assessment/Plan Congestive hepatopathy which for Natanael manifests with hyperbilirubinemia. Await sonogram to exclude obstruction Functional constipation. Will increase Miralax.
[2018-06-02] MEDS: POLYETHYLENE GLYCOL 3350 119 GM BTL PO SCH ×2 (17:23→22:03)
[2018-06-02] MEDS: GABAPENTIN 100 MG CAPSULE (FP) PO SCH (21:55)
[2018-06-02] MEDS: ATORVASTATIN CA 10 MG TABLET (FP) PO SCH (21:55)
[2018-06-03 03:16] LABS: HBSAG SCREEN Negative (Negative); HEP B CORE AB, TOT Negative (Negative)
[2018-06-03 04:16] LABS: SERUM IRON SATURATION 21 % (15-55); TOTAL IRON BINDING CAPACITY 312 ug/dL (250-450); UIBC 248 ug/dL (111-343)
[2018-06-03] MEDS: FUROSEMIDE 40 MG/4 ML INJECTABLE VIAL IVPUSH SCH (06:51)
[2018-06-03] MEDS: POLYETHYLENE GLYCOL 3350 119 GM BTL PO SCH (06:52)
[2018-06-03 07:48] LABS: BASO % 0.6 % (0-2.0); HEMATOCRIT 36.4 % (35.4-49); HEMOGLOBIN 12.5 GM/dL (11.7-16.9); LYMPH % 16.1 % (8-40); MCH 34.1 pg (25.7-33.7); MCHC 34.3 g/dl (32.0-35.9); MEAN CELL VOLUME 99.4 fl (80-96); MEAN PLT VOLUME 10.5 fl (7.5-11.1); MONO % 13.7 % (3.8-10.2); NEUT % 68.6 % (42.8-82.8); PLATELET COUNT 88 K/MM3 (134-434); RBC 3.67 M/mm3 (4.00-5.60); RDW 17.5 % (11.9-15.9); WHITE BLOOD COUNT 5.4 K/mm3 (4.0-10.0)
[2018-06-03 08:12] LABS: ALBUMIN 3.1 g/dl (3.4-5.0); BILIRUBIN,DIRECT 1.1 mg/dL (0.0-0.2); BILIRUBIN,TOTAL 3.4 mg/dL (0.2-1); TOT PROT 6.9 g/dl (6.4-8.2)
[2018-06-03 08:13] LABS: ANION GAP 7 MMOL/L (8-16); BLOOD UREA NITROGEN 38 mg/dL (7-18); CALCIUM 8.9 mg/dL (8.5-10.1); CHLORIDE 101 mmol/L (98-107); CO2 30 mmol/L (21-32); CREATININE 1.6 mg/dL (0.55-1.3); GLUCOSE,RANDOM 90 mg/dL (74-106); MAGNESIUM 2.1 mg/dL (1.8-2.4); POTASSIUM 3.8 mmol/L (3.5-5.1); SODIUM 138 mmol/L (136-145)
[2018-06-03] MEDS: CARVEDILOL 3.125 MG TABLET (FP) PO SCH (09:21)
[2018-06-03] MEDS: TAMSULOSIN HCL 0.4 MG CAP PO SCH (09:21)
[2018-06-03] MEDS: APIXABAN 2.5 MG TABLET PO SCH (09:22)
[2018-06-03] MEDS: MAGNESIUM OXIDE 400 MG TABLET (FP) PO SCH (09:22)
[2018-06-03] MEDS: POTASSIUM CHLORIDE TABS 20 MEQ TABLET.ER (FP) PO SCH (09:22)
[2018-06-03] MEDS: FINASTERIDE 5 MG TABLET (FP) PO SCH (09:22)
--- NOTE | 2018-06-03 09:38 | DS ---
Physical Examination Vital Signs: Vital Signs Temperature 97.5 F L 06/03/18 01:35 Pulse Rate 60 06/03/18 05:00 Respiratory Rate 20 06/03/18 05:00 Blood Pressure 120/60 06/03/18 05:00 O2 Sat by Pulse Oximetry (%) 98 06/02/18 21:00 Findings/Remarks: feels better no SOB wants togo home, walked in hallway - said his L knee hurts but after he started to walk he felt better; to f/u with dr Harris also f/u cardiology, heme, renal advised; chest CT pleursal effusions still present d/w pt to increase water pill dose at home (and K) and to f/u with PCP and cardiology within 1 week after DC home and with pulmonary also outpt eval will need f/u GI and heme for high bili and low PLT d/w pt and PCP Constitutional: Yes: No Distress Eyes: Yes: Conjunctiva Clear HENT: Yes: Atraumatic Neck: Yes: Supple Cardiovascular: Yes: Regular Rate and Rhythm Respiratory: Yes: Diminished Gastrointestinal: Yes: Soft. No: Tenderness Renal/: No: CVA Tenderness - Left, CVA Tenderness - Right Musculoskeletal: No: Joint Stiffness, Joint Swelling Extremities: No: Cold, Cool Edema: No Integumentary: No: Rash, Venous Stasis Changes Neurological: Yes: WNL, Alert, Oriented ...Motor Strength: WNL Psychiatric: Yes: WNL, Alert, Oriented. No: Agitated, Suicidal Ideation Labs: CBC, BMP 06/03/18 06:18 06/03/18 06:18 Discharge Summary Reason For Visit: CHF Current Active Problems Abnormal LFTs (Acute) CHF exacerbation (Acute) Lightheaded (Acute) Shortness of breath (Acute) Procedures: Principal: admitted with CHF exac, ARF/CRF Other Procedures: seen by cardiology, renal; diuresed; improved;. developed some low PLT seen by heme,f/u outpt;. also had mild increase in bili seen by GI , needs outpt f/u;. pleural effusions and some chronic lung changes: f/u with cardio and pulmonary outpt;. if persistent knee pain to see ortho outpt dr Milan or per PCP;d/w pt the above Hospital Course: improved with above DC home and f/u as advised Condition: Stable - Instructions Diet, Activity, Other Instructions: f/u PCP and cardiology in 1-2 weeks; f/u GI, renal, heme and pulmonary in 2-4 weeks; ortho and PCP f/u for Knees OA/DJD outpt; take meds as advised; LS diet; check weight daily call MD if 2 lbs change in 24H; RTER if worse or recurrent c/o; Referrals: Ja Anderson MD [Staff Physician] - Cam Newell MD [Staff Physician] - Quintin Clifford MD [Staff Physician] - Kale Denise MD [Staff Physician] - Clay Guerrero MD [Staff Physician] - Gila Harris MD [Primary Care Provider] - Disposition: VNS/HOME HEALTH CARE - Home Medications Comprehensive Discharge Medication List: Ambulatory Orders Simvastatin [Zocor -] 20 mg PO HS 08/22/14 Gabapentin [Neurontin -] 100 mg PO HS 03/26/15 Carvedilol [Coreg -] 3.125 mg PO BID 10/03/15 Apixaban [Eliquis] 2.5 mg PO BID #0 10/05/15 Magnesium Oxide [Mag-Ox -] 400 mg PO DAILY #30 tablet 09/21/16 Tamsulosin HCl [Flomax -] 0.4 mg PO BID@0830,2200 #60 cap 09/21/16 Finasteride [Proscar -] 5 mg PO DAILY #30 tablet 06/02/18 Polyethylene Glycol 3350 [Miralax 119 gm Btl -] 17 gm PO DAILY PRN bottle 06/02 Potassium Chloride [K-Dur -] 20 meq PO BID #30 tablet 06/02/18 Torsemide [Demadex -] 40 mg PO BID #60 tablet 06/02/18
--- NOTE | 2018-06-03 09:47 | PN ---
Progress Note (short form) - Note Progress Note: [facility] *LIVE* Progress Note (SOAP) Patient Name: DOLORES KRAUSE Date of : 1935 Patient Status: Inpatient Attending Provider: Milli Sarmiento Date: 06/02/18 12:07 Initialization Date: 06/02/18 12:07 Progress Note, Physician Chief Complaint: sob History of Present Illness: no cp, sob, palps, dizziness Current Medications Apixaban (Eliquis -) 2.5 mg PO BID [facility] Last Admin: 06/03/18 09:22 Dose: 2.5 mg Atorvastatin Calcium (Lipitor -) 10 mg PO HS [facility] Last Admin: 06/02/18 21:55 Dose: 10 mg Carvedilol (Coreg -) 3.125 mg PO BID [facility] Last Admin: 06/03/18 09:21 Dose: 3.125 mg Finasteride (Proscar -) 5 mg PO DAILY [facility] Last Admin: 06/03/18 09:22 Dose: 5 mg Furosemide (Lasix Injection -) 40 mg IVPUSH BID@0600,1400 [facility] Last Admin: 06/03/18 06:51 Dose: 40 mg Gabapentin (Neurontin -) 100 mg PO HS [facility] Last Admin: 06/02/18 21:55 Dose: 100 mg Magnesium Oxide (Mag-Ox -) 400 mg PO DAILY [facility] Last Admin: 06/03/18 09:22 Dose: 400 mg Polyethylene Glycol (Miralax (For Daily Use) -) 17 gm PO TID [facility] Last Admin: 06/03/18 06:52 Dose: Not Given Potassium Chloride (K-Dur -) 20 meq PO DAILY [facility] Last Admin: 06/03/18 09:22 Dose: 20 meq Tamsulosin HCl (Flomax -) 0.4 mg PO BID@0830,2200 [facility] Last Admin: 06/03/18 09:21 Dose: 0.4 mg - Objective Vital Signs: Vital Signs Period Temp Pulse Resp BP Sys/Rivera Pulse Ox Last 24 Hr 97.5 F-98 F 59-70 18-20 104-126/55-71 98 Constitutional: Yes: No Distress, Calm Eyes: No: Sclera Icterus HENT: No: Nasal Congestion Cardiovascular: Yes: Pulse Irregular, JVD (++), S1, S2, Other (PMI non diplaced) . No: Gallop, Murmur Respiratory: Yes: CTA Bilaterally. No: Accessory Muscle Use, Rales, Wheezes Gastrointestinal: Yes: Normal Bowel Sounds, Soft. No: Tenderness Musculoskeletal: Yes: Other (No kyphosis) Extremities: No: Cold Edema: Yes (1+ ankles) Integumentary: No: Jaundice Neurological: Yes: Alert, Oriented (x3) Psychiatric: No: Agitated Assessment/Plan CXR: persistent small L effusion, overall improved L base aeration vs prior 2017 echo 05/2018: tds; mild dec lvef, rv mod dil and mod dec fcn, orin, mild mr, sev tr, mild ar, rvsp 40-50 echo 05/2017: nl lvef, mild conc lvh, nl rv, mild orin, mild ar, mod tr, mod phtn , ivc dilated Echo 07/2015: afib, nl lvef, mild conc lvh, nl rv, mod orin, mild mr, mod tr, sev phtn. Echo 03/2015: Nl LV/RV, mild orin, mild MR, mod-sev TR, mild-mod AR, mod phtn Mibi 08/2014: no ischemia, nl EF. tele: afib, HR good a/p: 83 m hx htn, pafib,dm, hld, dchf, venous insuff, ckd (cr 1.6), cad s/p marion to rca [address] [facility], here with sob, le edema. acute diastolic CHF: -admitted 2014 for mild vol overload secondary to increased salt intake. after several days of iv lasix he felt better but still with significant left effusion so had thoracentesis. -here now with similar episode in setting of diet indiscretion (previously vol status had been stable on torsemide 40 qd as outpt) -sxs improving, still signif JVD ? very volume up vs primarily related to severe TR - continue increased torsemide dose 80 mg daily, plan for dc home today, patient will follow up with Dr. Valiente this week for labs and med titration MINGO on CKD: -prior creat's last admit here 1.6-1.8 -initially worse here, likely cardiorenal--improved with diuresis -monitor labs trend htn: -well controlled -cont home meds pafib: -Rate controlled on bb. -Continue eliquis for AC hld: -Continue statin. cad s/p remote pci: -no signs acs -Continue bb, statin. No asa as he is on ac. -ecg showing new rbbb and lvef mildly reduced compared to last year. no signs of acute acs, after chf resolved will check mibi to see if any ischemic cause, can be done as outpt.
[2018-06-03] MEDS ORDERED: ACETAMINOPHEN 325 MG TABLET (FP) PO ONE (10:15)
[2018-06-03 10:33] VITALS: BP 120/58; PULSE 70; TEMP 98
[2018-06-04 10:15] LABS: TRANSGLUTAMINASE IGA < 2 U/mL (0-3); TRANSGLUTAMINASE IGG < 2 U/mL (0-5)
[2018-06-05 10:14] LABS: ALPHA 2 MACROGLOBULINS,QN 189 mg/dL (110-276); ALT(SGPT)P5P 21 IU/L (0-55); CHOLESTEROL TOTAL 101 mg/dL (100-199); FIBROSIS SCORE 0.91 (0.00-0.21); GGT= 168 IU/L (0-65); GLUCOSE SERUM 90 mg/dL (65-99); HEIGHT 66 in (.); WEIGHT- 175 LBS (.)
== END 2018-06-03 13:27 | disposition home health service (06) | DRG 291 ==
LOC: JER 05:58 → JERBED 08:42 → J4W 17:52
PROVIDERS: ADMIT Internal Medicine; ATTEND Internal Medicine
DX: I13.0 Hypertensive heart and chronic kidney disease with heart failure and stage 1 through stage 4 chronic kidney disease, or unspecified chronic kidney disease (principal); I50.33 Acute on chronic diastolic (congestive) heart failure; N17.9 Acute kidney failure, unspecified; R18.8 Other ascites; I25.10 Atherosclerotic heart disease of native coronary artery without angina pectoris; Z79.01 Long term (current) use of anticoagulants; E78.5 Hyperlipidemia, unspecified; I27.20 Pulmonary hypertension, unspecified; N40.0 Benign prostatic hyperplasia without lower urinary tract symptoms; M10.9 Gout, unspecified; E11.22 Type 2 diabetes mellitus with diabetic chronic kidney disease; N18.9 Chronic kidney disease, unspecified; I48.0 Paroxysmal atrial fibrillation; D69.6 Thrombocytopenia, unspecified; Z98.61 Coronary angioplasty status; I45.10 Unspecified right bundle-branch block; E80.4 Gilbert syndrome; K59.00 Constipation, unspecified
CPT/HCPCS: 36415; 71045-TC-FY; 71250-TC; 76705-TC; 76775-TC; 76856-TC; 80048; 80053; 80076; 82172; 82247; 82248; 82465; 82550; 82570; 82607; 82728; 82746; 82947; 82977; 83010; 83516; 83540; 83550; 83615; 83735; 83880; 83883; 84100; 84156; 84443; 84450; 84460; 84478; 84484; 84540; 85025; 85044; 85384; 85610; 85730; 86038; 86704; 86706; 86708; 86803; 87340; 93005; 93010; 93306-TC; 99285-25